=== PATIENT | female | born 1945 | race African-American/Black ===

== ENCOUNTER 2019-01-07 15:57 | Inpatient (IN) ==
[2019-01-07] MEDS ORDERED: TYLENOL PO PRN (16:52)
[2019-01-07 17:27] LABS: HEMATOCRIT 33.5 % (37.0-47.0); HEMOGLOBIN 10.8 g/dL (12.0-16.0); MCH 27.8 PG (27-31); MCHC 32.2 g/dL (33-37); MCV 86.1 FL (81-99); MPV 10.2 FL (7.4-10.4); RBC 3.89 XMIL (4.2-5.4); RDW 13.8 % (11.5-14.5); WBC 6.43 X1000 (4.8-10.8)
[2019-01-07 17:33] LABS: INR 1.05; PROTIME 13.8 Seconds (11.0-16.0)
[2019-01-07 17:34] LABS: PTT 32.9 Seconds (22.3-41.8)
--- NOTE | 2019-01-07 18:29 | EKG Report ---
Test Performed on : 01/07/2019 5:24:14 PM Test Reason : INFECTED PORT Blood Pressure : / mmHG Vent. Rate : 063 BPM Atrial Rate : 063 BPM P-R Int : 152 ms QRS Dur : 068 ms QT Int : 424 ms P-R-T Axes : 020 026 030 degrees QTc Int : 433 ms Normal sinus rhythm. Normal ECG When compared with ECG of 01-MAR-2018 15:03, No significant change was found Confirmed by Tal Caballero MD ([id number]) on 01/08/2019 6:25:18 AM
--- NOTE | 2019-01-07 18:31 | Diag Imaging Result Doc PS360 ---
EXAM: CHEST-2 VIEWS 01/07/2019 HISTORY: INFECTED PORT TECHNIQUE: PA and lateral chest COMMENT: There is a vertically oriented linear opacity across the lateral right lung which may be artifactual. The heart size and pulmonary vascularity are within normal limits. There may be some platelike atelectasis over the right base which was not present on 04/10/2018. Otherwise there is no evidence of acute abnormality. IMPRESSION: Apparent atelectasis on the right. Electronically signed by Bobby Garcia 01/07/2019 6:29 PM
[2019-01-07] MEDS ORDERED: NAVANE PO SCH (21:00)
[2019-01-07] MEDS ORDERED: NS 500 ML ONE (22:06)
[2019-01-07] MEDS: ROCEPHIN 1 GM in NS 50 ML IV SCH (22:18)
[2019-01-07] MEDS: ELIQUIS PO SCH (22:19)
[2019-01-07] MEDS: MUCINEX DM PO SCH (22:19)
[2019-01-07] MEDS: CARDIZEM CD PO SCH (22:19)
[2019-01-07] MEDS: SINGULAIR PO SCH (22:19)
[2019-01-07] MEDS: BUSPAR PO SCH (22:19)
[2019-01-07] MEDS: DUONEB (A & A) INH SCH (23:03)
[2019-01-07 23:05] LABS: URINE SOURCE CLEAN CATCH
[2019-01-07 23:12] LABS: BILIRUBIN URINE NEGATIVE (NEGATIVE); BLOOD URINE NEGATIVE (NEGATIVE); COLOR YELLOW; GLUCOSE URINE NEGATIVE (NEGATIVE); KETONE URINE NEGATIVE (NEGATIVE); LEUKOCYTES URINE MODERATE (NEGATIVE); NITRITE URINE NEGATIVE (NEGATIVE); PROTEIN URINE TRACE mg/dL (NEGATIVE); SP GRAVITY URINE 1.023; TURBIDITY URINE CLEAR (CLEAR); UR EPITHELIAL CELLS <10 /HPF (<10); URINE BACTERIA NEGATIVE /HPF; URINE RBC <10 /HPF (<10); URINE WBC <10 /HPF (<10); UROBILINOGEN URINE NORMAL (NORMAL)
[2019-01-08] MEDS: DUONEB (A & A) INH SCH ×4 (04:16→21:05)
[2019-01-08] MEDS: PRILOSEC PO SCH (06:16)
[2019-01-08] MEDS: ELIQUIS PO SCH ×2 (08:40→22:08)
[2019-01-08] MEDS: CARDIZEM CD PO SCH ×2 (08:40→22:08)
[2019-01-08] MEDS: DIOVAN PO SCH (08:40)
[2019-01-08] MEDS: MUCINEX DM PO SCH ×2 (08:40→22:08)
[2019-01-08] MEDS: MIRALAX PO SCH (08:40)
[2019-01-08] MEDS: BUSPAR PO SCH ×2 (08:40→22:08)
[2019-01-08] MEDS: HYDROCHLOROTHIAZIDE PO SCH (08:40)
[2019-01-08] MEDS: ROCEPHIN 1 GM in NS 50 ML IV SCH ×2 (08:40→22:07)
--- NOTE | 2019-01-08 08:46 | PROGRESS NOTE ---
DATE: 01/08/2019 SUBJECTIVE: The patient says she is hurting in her neck and wanted something stronger than Tylenol for pain. I will give her a little hydrocodone for this. OBJECTIVE: Vital Signs: Stable with temperature 98.4 degrees Fahrenheit, respirations 20, pulse 68 and regular, and blood pressure 108/58. HEENT: She is normocephalic. EOMS intact. PERRLA. Throat clear. Neck: Soft-tissue swelling on the right side consistent with cellulitis and blood clot. Lungs: Clear to auscultation and percussion without rhonchi, rales, or wheezes. Heart: Regular rate and rhythm without murmurs, gallops, or friction rubs. Abdomen: Soft. Active bowel sounds. No organomegaly or tenderness. Neurological: Intact grossly. LABORATORY: White count 6430, hemoglobin 10.8, and hematocrit 33.5. Coagulation studies were normal. Urinalysis normal. ASSESSMENT: 1. 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 2. Cellulitis. 3. Secondary diagnoses of chronic cough and paranoid schizophrenia. PLAN: We will continue support with IV antibiotics. I have consulted Hematology and Infectious Disease, and started her on Eliquis. We will get an ultrasound of this area in her neck. She already had a CT scan, but ultrasound may give us more details of the soft tissue. cc: Seth Snowden Jr, MD
--- NOTE | 2019-01-08 09:56 | INFECTIOUS DISEASE CONSULT REP ---
DATE: 01/08/2019 CONCLUSION: I agree with Dr. Snowden that the patient has a thrombophlebitis in the right neck due to her having a Port-A-Cath present in the right chest. I am concerned that the patient may be having pulmonary emboli from the neck phlebitis. RECOMMENDATIONS: I agree with obtaining a venous ultrasound of the neck. I have ordered a pulmonary angiogram to look for pulmonary emboli. I have also ordered daptomycin in case the patient has septic phlebitis with possible septic pulmonary emboli. Dr. Snowden has started Rocephin with which I agree also. I have consulted Dr. Castellano, who put the Port-A-Cath in, to see the patient in view of the patient appearing to have a phlebitis which may be septic in nature in the right neck from the Port-A-Cath. I am going to discontinue the Crestor the patient takes while she is in the hospital and daptomycin because both the daptomycin and Crestor could increase the likelihood of muscle toxicity. DISCUSSION: The patient tells me that she has been having severe pain in her right neck for the past 4 to 5 days. In the past week, she has been short of breath and coughing, but not bringing up any sputum. The patient's chest x-ray shows possible atelectatic changes on the right side. The creatinine is 0.8. GFR is greater than 60, alkaline phosphatase is 128. Urine and blood cultures are pending. Urinalysis showed white cells, but no bacteria. CBC shows a white blood cell count of 6430, hemoglobin 10.8 and platelet count of 208,000. PAST MEDICAL HISTORY/REVIEW OF SYSTEMS: Eyes and ears: Patient denies having trouble seeing or hearing. Neck: See present illness. Respiratory: See present illness. Cardiac: No chest pain or palpitations. GI: No nausea, vomiting, or diarrhea. : No dysuria or flank pain. Bones joints muscles: No joint swelling or muscle aching. Neurologic: No seizures. No loss of motor or sensory function. 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 She has had a hysterectomy. PREVIOUS HOSPITALIZATIONS AND OPERATIONS: She has had labor and delivery x3. She has had a hysterectomy. She has had a Port-A-Cath that was placed by Dr. Castellano, and also she has had a lumpectomy of the right breast for her breast cancer which Dr. Castellano operated on. MEDICAL DISEASES: Positive for breast cancer, hypertension, gastroesophageal reflux disease and hyperlipidemia. INFECTIOUS DISEASE HISTORY: Negative for pneumonia and UTI. FAMILY HISTORY: Positive for cancer. Negative for diabetes mellitus and hypertension. SOCIAL HISTORY: The patient is a . [place] 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 ALLERGIES: The patient's chart lists no known drug allergies. HOME MEDICATIONS: Include the following: Benztropine, buspirone, Celecoxib, diltiazem, Docusate, hydrocodone, omeprazole, Crestor, thiothixene, and valsartan/hydrochlorothiazide. PHYSICAL EXAMINATION: Vital Signs: Temperature is 98.4 degrees, pulse 68, respirations 20, blood pressure is 108/58. The patient is 5 feet 1 inch tall and weighs 197 pounds. General: This is an obese, elderly female. She is in no acute distress, except she does have paroxysms of cough. Head/eyes/ears/nose/throat: She can hear my spoken words and see near objects. I did not see any white patches on her tongue. I did not see any erythema in her throat. Neck: The patient has tenderness in the right neck. Thorax: Patient has a Port-A-Cath present on the right side. Lungs: Clear to auscultation. Cardiovascular: Heart rate is regular. Abdomen: Soft and nontender. Neurologic: The patient is alert. She can move her extremities. There is no tremor. Her sensation is intact to touch. Her memory as regarding her medical history is slightly diminished. Integument: No rash noted. Thank you for the consult. cc: MD Seth Fuller Jr, MD
--- NOTE | 2019-01-08 10:06 | HEMO/ONC CONSULTATION ---
DATE: 01/08/2019 REASON FOR CONSULTATION: Port-A-Cath related clot HISTORY OF PRESENT ILLNESS: The patient came to her primary doctor's office complaining of pain in her neck and at her port when she coughs. She stated she had some fever as well. The patient stated overall she did not feel good. Dr. Snowden performed a neck CT which revealed thrombosis of internal jugular vein on the right side and inflammation. Patient was further admitted for evaluation. PAST MEDICAL HISTORY: Hypercholesterolemia and paranoid schizophrenia. PAST SURGICAL HISTORY: Port placement, lumpectomy, and lymph node dissection. ALLERGIES: No known drug allergies. HOME MEDICATIONS: Benztropine mesylate, buspirone, Caltrate, celecoxib, Cartia XT, [place] 10, MiraLAX, potassium chloride 10 mEq, rosuvastatin, thiothixene and valsartan /hydrochlorothiazide. REVIEW OF SYSTEMS: Negative other than mentioned in HPI. VITAL SIGNS: Temperature 98.4 degrees, pulse rate 68, respiratory rate 20, blood pressure 108/58, O2 saturation 96% on room air. She has 0/10 pain. The patient only has pain with cough. PHYSICAL EXAMINATION: General: This is an elderly-appearing female in no acute distress. Patient is obese with a BMI of 37.2. Skin: Warm, dry, intact without rashes or lesions. Appropriate color for ethnicity. HEENT: Sclera is anicteric. Pupils are PERRLA. Oral mucosa is pink and moist. Cardiovascular: Normal S1, S2. Heart rate and rhythm regular. Respiratory: No signs of respiratory distress. Lung sounds are clear. Dry cough noted. Abdomen: Soft, nontender without distention. Neurological: Patient is awake, alert, and oriented. No gait abnormalities appreciated. Lymphatic Survey: No lymphadenopathy noted to neck or axilla. ASSESSMENT: 1. 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 2. T2, N3 right breast carcinoma status post chemotherapy. PLAN: The patient was last seen in the office at the beginning of November with restaging scan. Her latest restaging PET scan shows that she is without any evidence of disease or distant metastasis. She is status post adjuvant radiation and chemotherapy. She continues to take Femara daily. Her anemia is most likely chemotherapy-induced anemia. Her last iron profile in the office was adequate. The patient is due to have her port flushed today. She has been getting it flushed every 8 weeks. Continue medical treatment per Dr. Snowden. Dr. Irwin will review. Dictated by ELIZA Avendaño for Omar Irwin MD Patient seen and examined. Ultrasound preliminary results show internal jugular DVT. She is on Eliquis. She compained of subjective fevers. No fevers thus far in the hospital while on antibiotics. Continue Eliquis and antibiotics and monitor closely. Await cultures. Omar Irwin MD. cc: MD Seth Carson Jr, MD MTDD
[2019-01-08 10:24] LABS: AGAP 9; ALBUMIN 3.2 g/dL (3.5-5.0); ALKALINE PHOSPHATASE 107 U/L (32-104); BUN 14 mg/dL (8-22); CALCIUM 9.7 mg/dL (8.8-10.2); CHLORIDE 105 mmol/L (98-107); COSMO 280; CREATININE 0.6 mg/dL (0.5-0.9); ESTIMATED GFR > 60; GLUCOSE 106 mg/dL (70-104); GOT 16 U/L (10-30); GPT 14 U/L (10-36); POTASSIUM 3.6 mmol/L (3.5-5.1); SODIUM 140 mmol/L (136-145); TCO2 26 mmol/L (25-35); TOTAL BILIRUBIN 0.25 mg/dL (0.20-1.00); TOTAL PROTEIN 6.5 g/dL (6.3-8.3)
--- NOTE | 2019-01-08 11:16 | Diag Imaging Result Doc PS360 ---
EXAM: CT ANGIOGRM PULMONARY ARTERIES 01/08/2019 HISTORY: pulmonary emboli TECHNIQUE: This exam was performed using automated exposure control, adjustment of mA or kV according to patient size, and/or use of iterative reconstruction technique. COMMENT: 3-D MIPS were performed. The current study is compared with the previous noncontrast examination of 12/11/2018. There are no filling defects in the pulmonary arteries. The aorta is not distended and there is no evidence of dissection. The descending aorta is somewhat tortuous. There is a right pleural effusion. This was not present at the time the previous study. There are calcified subcarinal and hilar nodes there is subcutaneous edema and skin thickening over the right chest which was also described previously. There appears to be soft tissue swelling and edema in the base of the neck on the right. There is no contrast opacification of the right internal jugular vein above the level of the medial clavicle head. This may simply be due to the lack of return flow from the head, however the possibility of thrombosis of the internal jugular cannot be excluded. There are spondylotic changes in the thoracic spine. There is a sclerotic lesion on the left side of the body of T10. This was also present at the time the previous study. There is some fibrotic appearing changes adjacent to the anterior pleura in the right upper lobe. This may be secondary to postirradiation fibrosis. The same is true of the right middle lobe. There is minimal atelectasis in the costophrenic sulci of both lower lobes. There are platelike opacities in the lingula which may be due to atelectasis. There is at least one calcified granuloma in the left upper lobe. IMPRESSION: No evidence of pulmonary emboli. Minimal atelectatic changes otherwise no evidence of acute pulmonary parenchymal disease. Soft tissue swelling in the right chest and inferior neck as described. Electronically signed by Bobby Garcia 01/08/2019 11:14 AM
[2019-01-08] MEDS: CUBICIN 500 MG in NS 100 ML IV SCH (12:07)
--- NOTE | 2019-01-08 18:37 | GENERAL SURGERY CONSULTATION ---
DATE: 01/08/2019 REASON FOR CONSULTATION: Possible thrombophlebitis and infection of a Port-A-Cath. HISTORY OF PRESENT ILLNESS: This is a 73-year-old female who has had swelling and pain of her right neck for the last week. It hurts when she coughs. She has reported some subjective fever. She has a history of right breast cancer, T3 N2, status post partial mastectomy, adjuvant radiation and chemotherapy. She had imaging of her neck yesterday, specifically a CT scan which showed probable thrombosis of the internal jugular vein and surrounding inflammation which may indicate thrombophlebitis. She has been admitted for further evaluation. Subsequently, she has had a CT scan or pulmonary angiogram of her chest without any evidence of pulmonary emboli. A right upper extremity venous duplex ultrasound was performed which shows occlusive thrombosis of the right internal jugular vein. PAST MEDICAL HISTORY: Hypercholesterolemia, paranoid schizophrenia, and as above in HPI. PAST SURGICAL HISTORY: Right partial mastectomy, axillary lymph node dissection and port placement. ALLERGIES: No known drug allergies. HOME MEDICATIONS: Benztropine, buspirone, Caltrate, celecoxib, cardia, [place], MiraLAX, potassium chloride, rosuvastatin, thiothixene, valsartan/hydrochlorothiazide. REVIEW OF SYSTEMS: Ten systems reviewed and negative except as noted above. PHYSICAL EXAMINATION: Vital Signs: Temperature 98.4 degrees, pulse 60, respirations 20, blood pressure 141/80. O2 saturation 98%. General: Well-developed elderly female in no distress who looks her stated age. HEENT: Normocephalic, atraumatic. Extraocular muscles intact. Pupils equal, round, reactive to light. Sclerae anicteric. Moist mucous membranes. Neck: She has a firm tender area of swelling over the right internal jugular and supraclavicular area. It does not look particularly red and does not feel warm. There is no fluctuance. There is no drainage. There is no crepitus. Cardiovascular: Regular rate and rhythm. Respiratory: Bilateral equal breath sounds. No work of breathing. Gastrointestinal: Abdomen soft, nontender, nondistended. No organomegaly or mass. Extremities: No clubbing, cyanosis, or edema. LABORATORY: White blood cell count 6.4, hemoglobin 10.8, hematocrit 33.5. Complete metabolic profile reviewed and unremarkable. IMAGING: As described above in HPI. ASSESSMENT AND PLAN: 73-year-old female with a history of breast cancer, now with occlusive thrombosis of the right internal jugular vein associated with her indwelling Port-A-Cath. She definitely has some surrounding cellulitis. There is a question of bacteremia or thrombophlebitis. For now, we will start her on anticoagulation and assess whether the port flushes. If it flushes and there is no bacteremia, then Dr. Irwin and I plan to leave the port in and treat her with anticoagulation. If she does have bacteremia or the port is not functional, then we will plan to remove it this admission. Thank you for the consultation. cc: MD Seth Toledo Jr, MD
[2019-01-08] MEDS: SINGULAIR PO SCH (22:08)
[2019-01-08] MEDS: NORCO-7.5 PO PRN (22:20)
[2019-01-09] MEDS: DUONEB (A & A) INH SCH ×4 (03:35→22:02)
[2019-01-09 06:03] LABS: BASO# 0.03 X1000 (0.0-0.2); BASO% 0.5 % (0.0-0.8); EOS# 0.14 X1000 (0.0-0.7); EOS% 2.4 % (0.0-10.0); HEMATOCRIT 30.8 % (37.0-47.0); HEMOGLOBIN 9.9 g/dL (12.0-16.0); LYMPH# 1.01 X1000 (1.2-3.4); LYMPH% 17.4 % (20.5-51.1); MCH 26.8 PG (27-31); MCHC 32.1 g/dL (33-37); MCV 83.5 FL (81-99); MONO# 0.71 X1000 (0.11-0.59); MONO% 12.3 % (1.7-9.3); MPV 10.3 FL (7.4-10.4); NEUT% 67.4 % (42.2-75.2); PLT 220 X1000 (130-400); RBC 3.69 XMIL (4.2-5.4); RDW 13.7 % (11.5-14.5); WBC 5.79 X1000 (4.8-10.8)
[2019-01-09] MEDS: PRILOSEC PO SCH (06:08)
[2019-01-09 06:24] LABS: AGAP 9; BUN 16 mg/dL (8-22); CALCIUM 9.1 mg/dL (8.8-10.2); CHLORIDE 105 mmol/L (98-107); COSMO 283; CREATININE 0.7 mg/dL (0.5-0.9); ESTIMATED GFR > 60; GLUCOSE 106 mg/dL (70-104); POTASSIUM 2.8 mmol/L (3.5-5.1); SODIUM 141 mmol/L (136-145); TCO2 27 mmol/L (25-35)
[2019-01-09] MEDS ORDERED: CARDIZEM CD PO SCH (09:00)
[2019-01-09] MEDS ORDERED: HYDROCHLOROTHIAZIDE PO SCH (09:00)
[2019-01-09] MEDS ORDERED: DIOVAN PO SCH (09:00)
[2019-01-09] MEDS ORDERED: MICRO-K PO SCH (09:00)
--- NOTE | 2019-01-09 09:10 | PROGRESS NOTE ---
DATE: 01/09/2019 SUBJECTIVE: The patient has been more nervous. She did not get her antipsychotic drugs. There has been some question about what she is really taking. The list she gave me from the office and the list that she gave the nurses here were different. We are going to call her psychiatrist and find out exactly what she is taking. Today she told me that he had made some changes, but she does not know what they are. Apparently could not get the [place], and she has been a little bit more paranoid. She has another antipsychotic listed. We will try to clarify this and get her back on her medications. OBJECTIVE: Vital Signs: Temperature 98.8 degrees Fahrenheit, but she did have a low-grade temperature yesterday, pulse 74 and regular, respirations 18, blood pressure 130/79, oxygen saturation on room air is 95%. HEENT: She is normocephalic. Intact PERRLA. Throat clear. Neck: I think there is a little less swelling in the right neck area. She says it still hurts a lot, but she does not seem nearly as tender as she did yesterday and the day before. I do not think it is as large as it was either, so I think the cellulitis has improved. She has clots there as well. Lungs: Clear to auscultation and percussion without rhonchi, rales, or wheezes. CT angiogram of the chest to rule out pulmonary emboli was negative. Heart: Regular rate and rhythm without murmurs, gallops or friction rubs. Abdomen: Soft. Active bowel sounds. No organomegaly or tenderness. Neurological exam: Cranial nerves 2-12 intact grossly. Sensory and motor intact. Psychiatric: The patient appears anxious and a little bit more paranoid. We will try to get her back on her antipsychotic medications. ASSESSMENT: 1. Cellulitis, right neck. 2. Thrombus of internal jugular vein on the right. 3. Paranoid schizophrenia. 4. Hypertension. PLAN: We will continue IV antibiotics. We will see if we can save the port. Appreciate help from all the specialists; Dr. Mulligan of Infectious Disease, Dr. Irwin of Hematology/Oncology and Dr. Castellano of Surgery. Continue care. cc: Seth Snowden Jr, MD
[2019-01-09] MEDS: ROCEPHIN 1 GM in NS 50 ML IV SCH ×2 (09:22→22:54)
[2019-01-09] MEDS: DIOVAN PO SCH (09:22)
[2019-01-09] MEDS: MUCINEX DM PO SCH ×2 (09:23→22:56)
[2019-01-09] MEDS: BUSPAR PO SCH ×2 (09:23→22:55)
[2019-01-09] MEDS: ELIQUIS PO SCH ×2 (09:23→22:56)
[2019-01-09] MEDS: CARDIZEM CD PO SCH ×2 (09:23→22:56)
[2019-01-09] MEDS: HYDROCHLOROTHIAZIDE PO SCH (09:23)
[2019-01-09] MEDS: MIRALAX PO SCH (09:23)
[2019-01-09] MEDS: FEMARA PO SCH (09:32)
[2019-01-09] MEDS: COGENTIN PO SCH ×2 (09:32→22:56)
[2019-01-09] MEDS: TRILAFON PO SCH ×2 (09:34→23:21)
[2019-01-09] MEDS: KLOR-CON PO SCH (09:41)
--- NOTE | 2019-01-09 09:59 | INFECTIOUS DISEASE PROGRESS NO ---
DATE: 01/09/2019 PRESENT ILLNESS: The patient has thrombophlebitis of the right neck with an associated cellulitis due to her Port-A-Cath which is in the right chest and extends into the jugular vein. MEDICATIONS: The patient is receiving a combination of daptomycin and Rocephin. OBJECTIVE: Vital Signs: Temperature is 98.8 degrees, pulse 74, respirations 18, blood pressure 130/79. General: This is a healthy-appearing and obese elderly female. She is in no acute distress. Head, Eyes, Ears, Nose, and Throat: She can hear my spoken words and see near objects. She does not have any white patches on her tongue. Neck: The patient has slight tenderness on the right side where her catheter site is, and it is slightly indurated there. Lungs: Clear to auscultation. Cardiovascular: Regular heart rate. Thorax: The patient's Port-A-Cath site on the right side is not swollen or tender. Abdomen: Soft and nontender. Neurologic: Patient is alert she can move her extremities. She is able to ambulate. There is no tremor. Integument: No rash noted. DIAGNOSTIC STUDIES: CT scan of the neck shows thrombosis and inflammation of the right internal jugular vein with tissue swelling in the neck suggestive of cellulitis. CT angiogram of the chest shows no pulmonary emboli. There is soft tissue swelling in the right chest suggestive of infection of the chest ASSESSMENT AND PLAN: 1. The patient has cellulitis in the neck and in the chest wall. 2. The patient has thrombophlebitis of the right internal jugular vein. My plan is to continue daptomycin and Rocephin pending culture results. COMORBIDITIES: 1. The patient is elderly. 2. She has a Port-A-Cath that has been placed on the right side. 3. The patient has breast cancer. 4. Gastroesophageal reflux disease. cc: MD Seth Fuller Jr, MD
[2019-01-09] MEDS ORDERED: ELIQUIS PO ONE (12:32)
[2019-01-09] MEDS: CUBICIN 500 MG in NS 100 ML IV SCH (12:43)
[2019-01-09] MEDS: NORCO-7.5 PO PRN (13:01)
--- NOTE | 2019-01-09 13:39 | HEMO/ONC PROGRESS NOTE ---
DATE: 01/09/2019 HPI/SUBJECTIVE: Ms. Silva is awake in her bed this morning. She is holding the covers up to her neck. She is not allowing nursing staff to access her port this morning. She states she will not do it till she has talked with Dr. Irwin. I explained to her that we needed to do this test and that Dr. Irwin had discussed it with Dr. Castellano. The patient still had concerns and wanted to discuss it with Dr. Irwin. The patient did take her medication per the nurse request. The patient states that her neck still hurt. She states she had a good night's sleep. She denies any other complaints today. OBJECTIVE: Vital Signs: Temperature 98.5 degrees, pulse rate 66, respiratory 20, blood pressure 118/94, O2 saturation 96% on room air. She has 5/10 right-sided neck pain. PHYSICAL EXAMINATION: General: This is an elderly appearing female in no acute distress. Skin: Warm, dry, and intact without rashes or lesions. Neck: Sightly swollen to the right side, tender to touch. Lungs: Clear to auscultation. No signs of respiratory distress. Cardiovascular: Heart rate and rhythm regular. Abdomen: Soft, nontender, without distention. Neurological: Awake and alert and oriented. Psychiatric: Seems to be a little more paranoid today. ASSESSMENT: 1. Cellulitis of the right neck. 2. 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 3. Paranoid schizophrenia. 4. T2 N3 right breast cancer status post chemotherapy. PLAN: The patient's ultrasound preliminary results show internal jugular deep venous thrombosis. The patient needs to be on Eliquis 10 mg twice a day for 7 days and then reduce the dose to 5 mg. She needs to continue to take Femara daily. Dr. Irwin will see the patient today at to assure her that he would like the nurse to attempt to flush her port. We will continue to follow. Dictated by ELIZA Avendaño for Omar Irwin MD As above. Continue antibiotics and eliquis loading dose followed by maintenance dose. Flush port today. Continue further management. Omar Irwin MD. cc: MD Seth Carson Jr, MD MTDD
--- NOTE | 2019-01-09 14:43 | GENERAL SURGERY PROGRESS NOTE ---
DATE: 01/09/2019 SUBJECTIVE: The patient is doing okay this morning. No new complaints. OBJECTIVE: She is afebrile. Vital signs are stable. General: She is awake, alert, oriented x3. No acute distress. Neck: The right neck remains indurated, tender, but somewhat less so than yesterday. LABORATORY: White blood cell count 5.8, hemoglobin 9.9, hematocrit 30.8, platelet count 220,000. Electrolytes reviewed and notable for potassium 2.8. Microbiology: Her blood cultures from yesterday are pending. ASSESSMENT AND PLAN: A 73-year-old female with advanced breast cancer. She has cellulitis and thrombophlebitis with deep venous thrombosis of the right internal jugular vein associated with the [id number]. If she is if she is bacteremic we will plan removal of the port- a- catheter. Otherwise, we will treat with antibiotics and anticoagulation alone. cc: MD Seth Toledo Jr, MD
--- NOTE | 2019-01-09 16:08 | Extremity Venous Study ---
PROCEDURE NAME: Venous U/S Right Arm - 01/07/2019 REFERRING PHYSICIAN: Seth Snowden Jr, MD. INDICATIONS: The patient is noted to have a DVT in the right internal jugular vein on recent CT. FINDINGS: The right internal jugular vein is identified. There is echogenicity within it. It is noncompressible. The right subclavian and axillary veins are compressible with flow. INTERPRETATION: Deep venous thrombosis involving the right internal jugular vein. This study verifies what was recently seen on CT scan. cc: MD Seth Quintana Jr, MD
[2019-01-09] MEDS: SINGULAIR PO SCH (22:55)
[2019-01-09] MEDS: CRESTOR PO SCH (22:56)
[2019-01-10] MEDS: DUONEB (A & A) INH SCH ×4 (03:28→21:08)
[2019-01-10 06:11] LABS: BASO# 0.03 X1000 (0.0-0.2); BASO% 0.5 % (0.0-0.8); EOS# 0.12 X1000 (0.0-0.7); HEMOGLOBIN 10.2 g/dL (12.0-16.0); LYMPH# 1.03 X1000 (1.2-3.4); LYMPH% 17.3 % (20.5-51.1); MCH 26.8 PG (27-31); MCHC 31.9 g/dL (33-37); MCV 84.2 FL (81-99); MONO% 11.7 % (1.7-9.3); MPV 9.9 FL (7.4-10.4); NEUT# 4.08 X1000 (1.4-6.5); NEUT% 68.5 % (42.2-75.2); PLT 240 X1000 (130-400); RDW 13.7 % (11.5-14.5); WBC 5.96 X1000 (4.8-10.8)
[2019-01-10] MEDS: PRILOSEC PO SCH (06:32)
[2019-01-10 06:34] LABS: AGAP 11; BUN 14 mg/dL (8-22); CALCIUM 9.6 mg/dL (8.8-10.2); CHLORIDE 104 mmol/L (98-107); COSMO 285; CREATININE 0.7 mg/dL (0.5-0.9); ESTIMATED GFR > 60; GLUCOSE 128 mg/dL (70-104); POTASSIUM 2.9 mmol/L (3.5-5.1); SODIUM 142 mmol/L (136-145); TCO2 27 mmol/L (25-35)
--- NOTE | 2019-01-10 09:05 | PROGRESS NOTE ---
DATE: 01/10/2019 SUBJECTIVE: The patient says she feels the same. She says she may be hurting a little bit more in her neck. OBJECTIVE: Vital Signs: Blood pressure 116/67, respirations 16, pulse 63, and temperature 99.8 degrees. HEENT: She is normocephalic. EOMS intact. PERRLA. Throat clear. Neck: Shows enlargement on the right side consistent with her clots and cellulitis. Lungs: Clear to auscultation and percussion without rhonchi, rales, or wheezes. Heart: Regular rate rhythm without murmurs, gallops, or friction rubs. Abdomen: Soft. Active bowel sounds. No organomegaly or tenderness. Neurological: Intact grossly. ASSESSMENT: 1. Internal jugular vein thrombosis. 2. Cellulitis right side of neck. 3. Breast cancer. 4. Has a port. 5. Schizophrenia, paranoid type. PLAN: We will continue with IV antibiotics and anticoagulation. I have discussed this with Dr. Irwin. Also, thanks to all of the consultants including Infectious Disease, Dr. Mulligan, and Dr. Irwin for Hem-Onc, and Dr. Castellano for Surgery. cc: Seth Snowden Jr, MD
--- NOTE | 2019-01-10 09:26 | INFECTIOUS DISEASE PROGRESS NO ---
DATE: 01/10/2019 PRESENT ILLNESS: The patient has thrombophlebitis of the right neck with an associated cellulitis. She also has on her CT angiogram of the chest soft tissue swelling in the right chest suggestive of infections such as cellulitis. MEDICATIONS: The patient is on a combination of daptomycin and Rocephin. PHYSICAL EXAMINATION: Vital Signs: Temperature is 99.8 degrees, pulse 63, respirations 16, blood pressure 116/67. General: This is an obese, elderly female. She is in no acute distress. Head, eyes, ears, nose, throat: She can hear my spoken words and see near objects. She does not have any white patches on her tongue. Neck: The patient does complain of pain in her right neck. I was unable to feel any induration or tenderness suggestive of cellulitis. Thorax: The patient's Port-A-Cath site is not swollen and there is not tenderness in the Port-A-Cath site and also in the upper part of the right chest. Lungs: Clear to auscultation. Cardiovascular: Heart rate is regular. Abdomen: Soft and nontender. Neurologic: The patient is alert. She can ambulate without difficulty. There is no tremor. Integument: No rash noted. LAB AND X-RAY: CBC shows a white count of 5960, hemoglobin 10.2, and platelet count 240,000. Creatinine is 0.7, GFR is greater than 60. Blood and urine cultures are sterile. There is no new radiographic study for today. ASSESSMENT AND PLAN: The patient has cellulitis in the neck secondary to thrombophlebitis of the right internal jugular vein. Also, in the chest wall, on CT scan, there is evidence of cellulitis also. My plan now is to continue daptomycin and Rocephin pending final culture results. COMORBIDITIES: The patient is elderly and she has a Port-A-Cath on the right side. She has breast cancer also as well as gastroesophageal reflux disease. cc: MD Seth Fuller Jr, MD
[2019-01-10] MEDS: ROCEPHIN 1 GM in NS 50 ML IV SCH ×2 (10:08→20:36)
[2019-01-10] MEDS: DIOVAN PO SCH (10:09)
[2019-01-10] MEDS: FEMARA PO SCH (10:09)
[2019-01-10] MEDS: MIRALAX PO SCH (10:09)
[2019-01-10] MEDS: MUCINEX DM PO SCH ×2 (10:09→20:37)
[2019-01-10] MEDS: COGENTIN PO SCH ×2 (10:09→20:33)
[2019-01-10] MEDS: HYDROCHLOROTHIAZIDE PO SCH (10:10)
[2019-01-10] MEDS: TRILAFON PO SCH ×2 (10:10→20:35)
[2019-01-10] MEDS: BUSPAR PO SCH ×2 (10:10→20:36)
[2019-01-10] MEDS: CARDIZEM CD PO SCH ×2 (10:10→20:36)
[2019-01-10] MEDS: ELIQUIS PO SCH ×2 (10:11→20:34)
[2019-01-10] MEDS: KLOR-CON PO SCH (10:11)
[2019-01-10] MEDS: CUBICIN 500 MG in NS 100 ML IV SCH (12:31)
--- NOTE | 2019-01-10 13:20 | HEMO/ONC PROGRESS NOTE ---
DATE: 01/10/2019 SUBJECTIVE: Ms. Silva is awake and alert, sitting up in bed this morning. She was happy to see Dr. Irwin and me this morning. She states that the pain in her neck does seem to be a little more tender today than when she came in. She states it hurts to turn her neck in any direction. She states she did have a good night's sleep, and she denies any other complaints today. OBJECTIVE: Vital Signs: Temperature 98.6 degrees, pulse rate 63, respiratory rate 20, blood pressure 112/59, O2 saturation 95% on room air. Pain Level: She is in 0/10 pain unless she moves her neck. General: This is an elderly appearing female in no acute distress. Skin: Warm, dry, and intact without rashes or lesions. Neck: Swollen to the right side of her neck, tender to touch. No redness or warmth appreciated. Lungs: Clear to auscultation. No signs of respiratory distress. Cardiovascular: Heart rate and rhythm regular. Normal S1, S2. Abdomen: Soft, nontender, without distension. Neurological: Awake, alert, and oriented. Psychiatric: Pleasant and appropriate mood today. The patient does have paranoid schizophrenia. ASSESSMENT: 1. Cellulitis of the right neck. 2. 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 3. Paranoid schizophrenia. 4. T2N3 right breast cancer status post chemotherapy. PLAN: The plan is to continue antibiotics and the loading dose of Eliquis for 7 days. Her port was able to be flushed adequately yesterday and had good blood return. Continue antibiotics. Discussed with Dr. Castellano and Dr. Snowden. We will continue to follow. Please call us if needed over the weekend. Dictated by ELIZA Avendaño for Omar Irwin MD cc: MD Seth Carson Jr, MD MTDD
--- NOTE | 2019-01-10 20:10 | GENERAL SURGERY PROGRESS NOTE ---
DATE: 01/10/2019 SUBJECTIVE: The patient feels about the same today. No new complaints. OBJECTIVE: Vital Signs: She is afebrile. Vital signs are stable. General: She is awake, alert, oriented x3. No acute distress. Neck: Her right neck remains swollen and tender, but not appreciably worse than yesterday. LABORATORY: White blood cell count 5.9. Electrolytes reviewed and notable for potassium of 2.9. Blood cultures are now negative after 48 hours. ASSESSMENT AND PLAN: A 73-year-old female with right neck thrombophlebitis and deep venous thrombosis of the internal jugular vein, associated with a history of breast cancer. It does not appear that she has bacteremia. Therefore, we will try to treat through this with antibiotics and anticoagulation, but keep the port in for now. cc: MD Seth Toledo Jr, MD
[2019-01-10] MEDS: SINGULAIR PO SCH (20:36)
[2019-01-10] MEDS: CRESTOR PO SCH (20:36)
[2019-01-10] MEDS: NORCO-7.5 PO PRN (20:46)
[2019-01-11] MEDS: DUONEB (A & A) INH SCH ×4 (03:06→21:35)
[2019-01-11] MEDS: PRILOSEC PO SCH (05:59)
[2019-01-11 06:02] LABS: BASO# 0.04 X1000 (0.0-0.2); BASO% 0.8 % (0.0-0.8); EOS# 0.17 X1000 (0.0-0.7); EOS% 3.5 % (0.0-10.0); HEMATOCRIT 31.5 % (37.0-47.0); HEMOGLOBIN 10.2 g/dL (12.0-16.0); LYMPH# 0.85 X1000 (1.2-3.4); LYMPH% 17.6 % (20.5-51.1); MCH 27.1 PG (27-31); MCHC 32.4 g/dL (33-37); MCV 83.8 FL (81-99); MONO# 0.59 X1000 (0.11-0.59); MONO% 12.2 % (1.7-9.3); NEUT# 3.19 X1000 (1.4-6.5); NEUT% 65.9 % (42.2-75.2); PLT 257 X1000 (130-400); RBC 3.76 XMIL (4.2-5.4); RDW 13.5 % (11.5-14.5); WBC 4.84 X1000 (4.8-10.8)
[2019-01-11 06:28] LABS: AGAP 7; BUN 10 mg/dL (8-22); CHLORIDE 104 mmol/L (98-107); COSMO 279; CREATININE 0.5 mg/dL (0.5-0.9); ESTIMATED GFR > 60; GLUCOSE 106 mg/dL (70-104); POTASSIUM 3.2 mmol/L (3.5-5.1); SODIUM 140 mmol/L (136-145); TCO2 29 mmol/L (25-35)
[2019-01-11] MEDS: ROCEPHIN 1 GM in NS 50 ML IV SCH ×3 (09:45→22:26)
[2019-01-11] MEDS: COGENTIN PO SCH ×3 (09:45→22:28)
[2019-01-11] MEDS: FEMARA PO SCH (09:45)
[2019-01-11] MEDS: DIOVAN PO SCH (09:46)
[2019-01-11] MEDS: MIRALAX PO SCH (09:46)
[2019-01-11] MEDS: MUCINEX DM PO SCH ×3 (09:47→22:27)
[2019-01-11] MEDS: ELIQUIS PO SCH ×3 (09:47→22:28)
[2019-01-11] MEDS: HYDROCHLOROTHIAZIDE PO SCH (09:47)
[2019-01-11] MEDS: KLOR-CON PO SCH (09:47)
[2019-01-11] MEDS: BUSPAR PO SCH ×3 (09:47→22:27)
[2019-01-11] MEDS: TRILAFON PO SCH ×3 (09:48→22:27)
[2019-01-11] MEDS: CARDIZEM CD PO SCH ×3 (09:55→22:27)
[2019-01-11] MEDS ORDERED: KLOR-CON PO ONE (10:54)
--- NOTE | 2019-01-11 11:27 | PROGRESS NOTE ---
DATE: 01/11/2019 SUBJECTIVE: A 73-year-old female patient, admitted with pain in the right side of the neck. Found to have thrombus in the right internal jugular vein with some inflammation around. Patient had Doppler done which also revealed the blood clot. The patient is on IV antibiotics and symptomatic care. The patient is feeling better. Her pain seems to be getting better. The patient had low-grade fever. Oral intake is fair. No nausea or vomiting. Mild cough, no expectoration. She denied any typical chest pain or palpitation. Vague abdominal pain. No nausea or vomiting. No diarrhea, blood, or mucus in the stool. No dysuria or hematuria. Admission history and physical and consult note reviewed. PAST MEDICAL HISTORY: Significant for breast cancer, hyperlipidemia, paranoid schizophrenia. Patient had port placement. OBJECTIVE: Vital signs: Blood pressure 140/71, pulse 80, respiration 18, temperature 99.3 degrees. Skin: Senile turgor. Neck: Supple. No JVD. The patient does have soreness in the right side of the neck. No pharyngeal congestion. Ears and nose: Benign. Lungs: Bibasilar crepitation. Heart: S1 and S2 heard. Abdomen: Soft, nontender. Bowel sounds present. Extremities: No cyanosis, clubbing. No acute DVT. Central nervous system: Alert, awake, able to move all 4 limbs. LABORATORY DATA: Done today revealed hypokalemia, potassium 3.2. I am going to supplement potassium, check the magnesium level. BUN was 10, creatinine 0.5. CBC results noted hemoglobin 10.2, hematocrit 31.5, most likely due to anemia of chronic disease. ASSESSMENT AND PLAN: The patient's problem includes deep venous thrombosis involving the right internal jugular vein with some inflammation around the neck, breast cancer, paranoid schizophrenia, hypokalemia, anemia of chronic disease. We will supplement potassium. Check magnesium. Continue IV antibiotics. Overall plan discussed with the patient and she is in agreement. Her other problems include hyperlipidemia on Crestor, hypertension, rhinitis, on Singulair, constipation. cc: MD Seth Powers Jr, MD
[2019-01-11] MEDS: CUBICIN 500 MG in NS 100 ML IV SCH (13:43)
--- NOTE | 2019-01-11 14:59 | GENERAL SURGERY PROGRESS NOTE ---
DATE: 01/11/2019 SUBJECTIVE: No acute changes. She is eating and overall feeling better. OBJECTIVE: Vital Signs: She is afebrile. Vital signs are stable. General: She is awake, alert, oriented x4. No acute distress. Neck: The right side is sore and firm and swollen, but no change since admission. No crepitans or significant erythema. LABORATORY: CBC and metabolic profile reviewed and unremarkable. ASSESSMENT AND PLAN: A 73-year-old female with right internal jugular vein deep vein thrombosis associated with the port. There is some surrounding cellulitis, possible thrombophlebitis, but I think she is improving. We will keep her port and treat her with anticoagulation. No further surgical plans at this time. cc: MD Seth Toledo Jr, MD
[2019-01-11] MEDS: NORCO-7.5 PO PRN (19:42)
[2019-01-11] MEDS: CRESTOR PO SCH ×2 (19:46→22:28)
[2019-01-11] MEDS: SINGULAIR PO SCH ×2 (19:46→22:28)
[2019-01-12] MEDS: DUONEB (A & A) INH SCH ×4 (03:35→21:31)
[2019-01-12 05:54] LABS: BASO# 0.03 X1000 (0.0-0.2); BASO% 0.6 % (0.0-0.8); EOS# 0.14 X1000 (0.0-0.7); EOS% 2.7 % (0.0-10.0); HEMATOCRIT 32.9 % (37.0-47.0); HEMOGLOBIN 10.6 g/dL (12.0-16.0); LYMPH# 0.98 X1000 (1.2-3.4); LYMPH% 18.7 % (20.5-51.1); MCH 27.1 PG (27-31); MCHC 32.2 g/dL (33-37); MCV 84.1 FL (81-99); MONO# 0.56 X1000 (0.11-0.59); MONO% 10.7 % (1.7-9.3); MPV 9.6 FL (7.4-10.4); NEUT# 3.52 X1000 (1.4-6.5); NEUT% 67.3 % (42.2-75.2); PLT 284 X1000 (130-400); RBC 3.91 XMIL (4.2-5.4); RDW 13.3 % (11.5-14.5); WBC 5.23 X1000 (4.8-10.8)
[2019-01-12] MEDS: PRILOSEC PO SCH (06:31)
[2019-01-12 06:42] LABS: AGAP 10; ALB/GLOB RATIO 0.9; ALBUMIN 3.2 g/dL (3.5-5.0); ALKALINE PHOSPHATASE 126 U/L (32-104); BUN 14 mg/dL (8-22); CALCIUM 9.7 mg/dL (8.8-10.2); CHLORIDE 105 mmol/L (98-107); COSMO 282; CREATININE 0.5 mg/dL (0.5-0.9); ESTIMATED GFR > 60; GLUCOSE 110 mg/dL (70-104); GOT 15 U/L (10-30); GPT 15 U/L (10-36); POTASSIUM 3.9 mmol/L (3.5-5.1); SODIUM 141 mmol/L (136-145); TCO2 26 mmol/L (25-35); TOTAL BILIRUBIN 0.24 mg/dL (0.20-1.00); TOTAL PROTEIN 6.7 g/dL (6.3-8.3)
[2019-01-12] MEDS: ROCEPHIN 1 GM in NS 50 ML IV SCH ×2 (09:29→20:22)
[2019-01-12] MEDS: TRILAFON PO SCH ×2 (09:29→20:22)
[2019-01-12] MEDS: FEMARA PO SCH (09:29)
[2019-01-12] MEDS: ELIQUIS PO SCH ×2 (09:29→20:22)
[2019-01-12] MEDS: BUSPAR PO SCH ×4 (09:29→20:25)
[2019-01-12] MEDS: CARDIZEM CD PO SCH ×2 (09:29→20:22)
[2019-01-12] MEDS: MUCINEX DM PO SCH ×2 (09:29→20:21)
[2019-01-12] MEDS: KLOR-CON PO SCH (09:30)
[2019-01-12] MEDS: DIOVAN PO SCH (09:30)
[2019-01-12] MEDS: COGENTIN PO SCH ×2 (09:30→20:21)
[2019-01-12] MEDS: MIRALAX PO SCH (09:30)
[2019-01-12] MEDS: HYDROCHLOROTHIAZIDE PO SCH (09:30)
--- NOTE | 2019-01-12 09:44 | PROGRESS NOTE ---
DATE: 01/12/2019 SUBJECTIVE: Ms. Silva is doing better. The pain and redness right side of the neck improving. No high-grade fever or chills. Mild cough. No expectoration. Denied any nausea or vomiting. Oral intake seems to be getting better. PAST MEDICAL HISTORY: Noted. MEDICATIONS: Noted. OBJECTIVE: Vital Signs: Reviewed. Neck: Supple. No JVD. Lungs: Bibasilar crepitations. Heart: S1 and S2 heard. Abdomen: Soft, nontender. Bowel sounds present. No acute DVT. 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 LABORATORY DATA: Done today, WBC count 5.23, hemoglobin 10.6, hematocrit 32.9, platelet count 284,000. Electrolytes fairly benign. ASSESSMENT: 1. Hypokalemia, improved. The patient admitted with deep venous thrombosis involving the right internal jugular vein with some local inflammation. Patient is on IV antibiotics. Clinically doing better. 2. History of hypokalemia, improved. 3. Schizophrenia. No hallucination or delusion. 4. History of breast cancer. 5. Hypertension, on Diovan/hydrochlorothiazide. 6. Hyperlipidemia, on Crestor. Overall patient is doing better. We will continue current treatment. Close observation. Hopefully will plan discharging patient home tomorrow. cc: MD Seth Powers Jr, MD
[2019-01-12] MEDS: CUBICIN 500 MG in NS 100 ML IV SCH (13:07)
--- NOTE | 2019-01-12 14:01 | INFECTIOUS DISEASE PROGRESS NO ---
DATE: 01/12/2019 PRESENT ILLNESS: The patient has thrombophlebitis in the right neck with an associated cellulitis. Also as seen on CT scan of the chest, she has soft tissue swelling in the right chest also suggestive of cellulitis. MEDICATIONS: The patient is on daptomycin and Rocephin. PHYSICAL EXAMINATION: Vital Signs: Temperature is 98.3 degrees, pulse 76, respirations 20, blood pressure 120/73. General: This is an obese, elderly female. She is in no acute distress. She said that her neck is hurting less than it had been prior to today. Head/eyes/ears/nose/throat: She can hear my spoken words and see near objects. She does not have any white coating of her tongue. Neck: I can palpate the catheter in the lower part of the neck on the right side. There is not any erythema present in the neck. It is still slightly tender. Thorax: The patient's Port-A-Cath site is not swollen, and there is no drainage coming from it. Lungs: Clear to auscultation. Cardiovascular: Regular heart rate. Abdomen: Soft and nontender. Neurologic: The patient is alert. She ambulates without difficulty. She does not have a tremor. LAB AND X-RAY: CBC shows a white count of 5230, hemoglobin 10.6, platelet count is 284,000. Creatinine is 0.5, GFR is greater than 60. Blood and urine cultures are negative. There is no new radiographic study for today. ASSESSMENT AND PLAN: The patient has cellulitis in the neck secondary to thrombophlebitis. She also has cellulitis on the chest wall as seen on CT scan. For now, I plan on continuing daptomycin and Rocephin. I think by tomorrow, the patient should be able to go home. I do not think she will need any further antibiotics. I have ordered a CK because daptomycin can cause muscle toxicity, and the patient is on rosuvastatin, and that and the daptomycin may cause an increase in the CK. As mentioned above, I have ordered a CK for tomorrow, and I have discontinued the statin drug the patient is on. COMORBIDITIES: The patient is elderly, and she has a Port-A-Cath present on the right side. She also has breast cancer and gastroesophageal reflux disease. cc: MD Seth Fuller Jr, MD
[2019-01-12] MEDS: NORCO-7.5 PO PRN (20:19)
[2019-01-12] MEDS: SINGULAIR PO SCH (20:21)
[2019-01-13] MEDS: DUONEB (A & A) INH SCH ×2 (03:40→09:32)
[2019-01-13] MEDS: PRILOSEC PO SCH ×2 (05:58→06:02)
[2019-01-13] MEDS: NORCO-7.5 PO PRN (05:58)
[2019-01-13 08:11] VITALS: BP 129/81
[2019-01-13] MEDS: DIOVAN PO SCH (08:57)
[2019-01-13] MEDS: BUSPAR PO SCH (08:57)
[2019-01-13] MEDS: COGENTIN PO SCH (08:57)
[2019-01-13] MEDS: KLOR-CON PO SCH (08:57)
[2019-01-13] MEDS: ELIQUIS PO SCH (08:57)
[2019-01-13] MEDS: ROCEPHIN 1 GM in NS 50 ML IV SCH (08:58)
[2019-01-13] MEDS: TRILAFON PO SCH (08:58)
[2019-01-13] MEDS: FEMARA PO SCH (08:58)
[2019-01-13] MEDS: CARDIZEM CD PO SCH (08:58)
[2019-01-13] MEDS: MUCINEX DM PO SCH (08:58)
[2019-01-13] MEDS: HYDROCHLOROTHIAZIDE PO SCH (08:58)
--- NOTE | 2019-01-13 12:39 | HEMO/ONC PROGRESS NOTE ---
DATE: 01/13/2019 SUBJECTIVE/HISTORY OF PRESENT ILLNESS: The patient states she had a very good weekend. She is feeling a lot better today. She can feel that the cellulitis has decreased, as has the pain in her neck. She has been told that she might be going home today and she is very excited about that. OBJECTIVE: Vital Signs: Temperature 98.3 degrees, pulse rate 78, respiratory rate 16, blood pressure 129/89, O2 saturation 95% on room air. She is in 0/10 pain. Physical Examination: General: This is an elderly appearing female in no acute distress. Skin: Warm, dry, and intact without rashes or lesions. Neck: Slightly swollen to the right side of her neck. Tender with palpation. No redness or warmth appreciated. Swelling is significantly reduced compared to last Sunday. Lungs: Clear to auscultation. No signs of respiratory distress. Cardiovascular: Heart rate and rhythm regular. Normal S1, S2. Abdomen: Soft, nontender, without distention. Neurological: Alert, awake, and oriented. Psychiatric: Appropriate today. The patient has a history of paranoid schizophrenia but does not appear paranoid at the time. ASSESSMENT: 1. Cellulitis of right neck. 2. 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 3. Paranoid schizophrenia. 4. T2, N3 right breast cancer, status post chemotherapy. PLAN: The plan is for the patient to continue to be treated per Dr. Mulligan's recommendation. She knows to follow up with her medical doctor as well as follow up in the clinic for ongoing breast cancer surveillance. The patient is due to her next PET scan at the end of January and we will follow up with her in February for regular care. Dictated by ELIZA Avendaño for Omar Irwin MD Patient seen and examined. As above. Plan to discharge home on antibiotics. Also plan to continue Eliquis 10 mg twice a day for a total of 7 days followed by 5 mg twice a day. We will see her back in the clinic for ongoing follow-up and further management of her DVT and breast cancer. Omar Irwin M.D. cc: MD Seth Carson Jr, MD MTDD
--- NOTE | 2019-01-13 14:15 | DISCHARGE SUMMARY ---
ADMISSION DATE: 01/07/2019 DISCHARGE DATE: 01/13/2019 CONSULTATIONS: Dr. Irwin, Heme-Onc, Dr. Mulligan, Infectious Disease and Dr. Castellano, Surgery. FINAL DIAGNOSIS: 1. Thrombosis of the right internal jugular vein. 2. Cellulitis. 3. Breast cancer. SECONDARY DIAGNOSIS: 1. Hyperlipidemia. 2. Paranoid schizophrenia. 3. Hypertension. PLAN: We will discharge home on current medications. She has some antibiotic already at home some doxycycline which she will use and I will place her on Eliquis 10 mg p.o. b.i.d. for the next 3 days so she will have been on it for at least a week and then 5 mg p.o. b.i.d. 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 Patient also complained of a dry cough that has been chronic but we can find no source for this. HOSPITAL COURSE: Patient was placed on initially Rocephin and then daptomycin for cellulitis of the right neck area. She was placed on Eliquis. There is some question about how much this was really infection or just inflammation. She has had no fever last several days. Did not have much of a fever before that. We wanted to try save her port if at all possible. The swelling has gone down in her neck. OBJECTIVE: Blood pressure is 129/81, respirations 16, pulse 78, temperature 98.3 degrees Fahrenheit . HEENT: She is normocephalic. EOMS intact. PERRLA. Throat clear. Neck: Supple but she does have some swelling and tenderness in the right side. This has gone down since her admission. Lungs: Clear to auscultation and percussion without rhonchi, rales or wheezes. Heart: Regular rate and rhythm without murmurs, gallops, friction rubs. Abdomen: Soft. Active bowel sounds. No organomegaly or tenderness. Neurological: Intact grossly. PLAN: Will see patient back in my office this afternoon to clarify medications and will also plan to see her back in the office in about a week. cc: Seth Snowden Jr, MD
== END 2019-01-13 10:07 | disposition home or self-care (01) | DRG 315 ==
LOC: DIRADM 15:57 → 4N 16:03
PROVIDERS: ADMIT Emergency Medicine; ATTEND Emergency Medicine

== ENCOUNTER 2019-08-12 07:42 | Inpatient (IN) ==
[2019-08-12] MEDS ORDERED: COMBIVENT RESPIMAT INHALER INH ONE (08:58)
[2019-08-12] MEDS ORDERED: NS 1,000 ML IV ONE ×2 (08:58→10:42)
[2019-08-12] MEDS ORDERED: TORADOL IV ONE (09:00)
[2019-08-12] MEDS ORDERED: ROBITUSSIN PO ONE (09:00)
--- NOTE | 2019-08-12 09:20 | Diag Imaging Result Doc PS360 ---
CHEST-2 VIEWS - 08/12/2019 INDICATION: cough, SOB COMPARISON: 01/07/2019 FINDINGS: There is ill-defined infiltrate throughout the right midlung and lung base. There is a trace right pleural effusion. Stable trace infiltrate or atelectasis in the left lung base. Heart size is top normal. Stable right chest port in good position. Stable surgical clips in right axillary soft tissues. IMPRESSION: Infiltrate throughout the right midlung and lung base, nonspecific but compatible with pneumonia or viral infection. Trace right pleural effusion. Electronically signed by Denilson Bliss 08/12/2019 9:18 AM
--- NOTE | 2019-08-12 09:36 | EKG Report ---
Test Performed on : 08/12/2019 09:29:15 AM Test Reason : sob Blood Pressure : / mmHG Vent. Rate : 092 BPM Atrial Rate : 092 BPM P-R Int : 150 ms QRS Dur : 074 ms QT Int : 372 ms P-R-T Axes : 042 017 016 degrees QTc Int : 460 ms Normal sinus rhythm. Normal ECG When compared with ECG of 07-JAN-2019 17:24, Nonspecific T wave abnormality now evident in Lateral leads Unconfirmed Result
[2019-08-12 09:51] LABS: BASO# 0.04 X1000 (0.0-0.2); BASO% 0.5 % (0.0-0.8); EOS# 0.07 X1000 (0.0-0.7); EOS% 0.9 % (0.0-10.0); HEMATOCRIT 39.3 % (37.0-47.0); HEMOGLOBIN 12.3 g/dL (12.0-16.0); IMM GRAN# 0.02 X1000 (0.0-0.04); IMM GRAN% 0.3 % (0.0-0.5); LYMPH# 1.46 X1000 (1.2-3.4); LYMPH% 19.5 % (20.5-51.1); MCH 26.9 PG (27-31); MCHC 31.3 g/dL (33-37); MONO# 0.67 X1000 (0.11-0.59); MONO% 8.9 % (1.7-9.3); MPV 10.4 FL (7.4-10.4); NEUT# 5.23 X1000 (1.4-6.5); NEUT% 69.9 % (42.2-75.2); PLT 160 X1000 (130-400); RBC 4.57 XMIL (4.2-5.4); RDW 14.1 % (11.5-14.5); WBC 7.49 X1000 (4.8-10.8)
[2019-08-12 09:55] LABS: INR 1.05; PROTIME 13.8 Seconds (11.0-16.0)
[2019-08-12 09:56] LABS: PTT 30.8 Seconds (22.3-41.8)
[2019-08-12] MEDS ORDERED: ZITHROMAX 500 MG/NS 500 MG/250 ML IVPB IV ONE (10:08)
[2019-08-12] MEDS ORDERED: ROCEPHIN 1 GM in NS 50 ML IV ONE (10:08)
[2019-08-12 10:22] LABS: AGAP 12; ALB/GLOB RATIO 1.1; ALBUMIN 3.6 g/dL (3.5-5.0); ALKALINE PHOSPHATASE 211 U/L (32-104); BUN 12 mg/dL (8-22); CALCIUM 9.6 mg/dL (8.8-10.2); CHLORIDE 104 mmol/L (98-107); CK PROFILE 123 U/L (24-173); COSMO 283; CREATININE 0.8 mg/dL (0.5-0.9); ESTIMATED GFR > 60; GLUCOSE 103 mg/dL (70-104); GOT 52 U/L (10-30); GPT 55 U/L (10-36); POTASSIUM 3.4 mmol/L (3.5-5.1); SODIUM 142 mmol/L (136-145); TCO2 26 mmol/L (25-35); TOTAL BILIRUBIN 0.35 mg/dL (0.20-1.00); TOTAL PROTEIN 6.9 g/dL (6.3-8.3)
--- NOTE | 2019-08-12 10:40 | PROVIDER DOCUMENTATION ---
This chart was entered by Anna Henderson Scribe, acting as scribe for Tono Christian MD. HPI-General Adult - General Chief Complaint: Cough Stated Complaint: COUGHING,CANT BREATHE,BILA SIDE PAIN Time Seen by Provider: 08/12/19 08:51 Source: patient Allergies/Adverse Reactions: Patient Allergies Allergy/AdvReac Type Severity Reaction Status Date / Time No Known Allergies Allergy Verified 08/12/19 08:48 Home Medications: Home Medication List Medication Instructions Recorded Confirmed Last Taken Type Benztropine Mesylate 0.5 mg PO BID 03/04/18 01/08/19 04/08/18 History Buspirone HCl 30 mg PO BID 03/04/18 01/08/19 04/08/18 History Diltiazem HCl [Cartia Xt] 240 mg PO BID 03/04/18 01/08/19 04/08/18 History Potassium Chloride 20 meq PO DAILY 03/04/18 01/08/19 04/08/18 History ROSUVAstatin [Crestor] 20 mg PO QHS 03/04/18 01/08/19 04/08/18 History Valsartan/Hydrochlorothiazide 1 each PO DAILY 03/04/18 01/08/19 04/08/18 History [Valsartan-Hctz 320-25 mg Tab] Letrozole 2.5 mg PO DAILY 01/08/19 01/08/19 Unknown History Perphenazine 8 mg PO BID 01/08/19 01/08/19 Unknown History Apixaban [Eliquis] 5 mg PO BID #60 tab 01/13/19 Unknown Rx - History of Present Illness -Gen Adult Nature of Presenting Problems: 73yof presents to ED cc severe, non-productive cough that has increased over last 2 weeks and is causing bilateral sides of outer chest & flank pain with the cough and movement. Pt denies fever, chills or any known sick contacts. Pt is nontoxic and afebrile upon exam. Location of Pain/Injury: reports: upper body Quality of Pain: reports: aching Severity: reports: mild, moderate Onset/Duration: reports: last week Timing: reports: still present, getting worse Context/Activities at Onset: reports: light activity Modifying Factors: worse with: coughing, movement Associated Symptoms: reports: cough Similar Symptoms Previously?: No Recently seen or treated by another doctor?: No Review of Systems - Adult - REVIEW OF SYSTEMS - ADULT Constitutional: reports: see HPI. denies: chills, fever, fatique Eyes: reports: no symptoms reported Ears, Nose, Mouth & Throat: reports: no symptoms reported Cardiovascular: reports: no symptoms reported Respiratory: reports: see HPI, cough Gastrointestinal: reports: no symptoms reported Genitourinary: reports: see HPI, flank pain (bilateral) Musculoskeletal: reports: see HPI, muscle aches (both sides of outer chest) Integumentary: reports: no symptoms reported Neurological: reports: no symptoms reported Psychiatric: reports: no symptoms reported Endocrine: reports: no symptoms reported Hematologic/Lymphatic: reports: no symptoms reported Allergic/Immunologic: reports: no symptoms reported All Other Systems: Reviewed and Negative Past History - Adult - PAST MEDICAL HISTORY-ADULT Review of Records: reports: Nursing Assessment Review, Medications Reviewed, Social history reviewed & non-contributory. Major Childhood Illnesses: reports: denies history Cardiovascular: reports: denies history Respiratory: reports: denies history Gastrointestinal: reports: denies history Obstetrical/Gynecological: reports: denies history Genitourinary: reports: denies history Musculoskeletal: reports: denies history Neurological: reports: denies history Endocrine/Immune: reports: denies history Other Conditions: reports: denies history - IMMUNIZATION STATUS Childhood Immunizations: See Nurse Assessment Flu Vaccine: See Nurse Assessment - FAMILY HISTORY Family History: reviewed, not pertinent Physical Exam-General - PHYSICAL EXAM-ADULT Initial Vital Signs Reviewed: Yes - CONSTITUTIONAL General Appearance: appears well, alert, no apparent distress. negative: anxious, combative - EYES Eyes: PERRL/EOMI, pink conjunctivae. negative: photophobia - HEAD, EARS, NOSE, MOUTH & THROAT HENMT: normocephalic/atraumatic, moist mucous membranes. negative: angioedema - NECK Neck: supple, normal inspection - RESPIRATORY Respiratory: chest non-tender, lungs clear, normal breath sounds, other (tachypneic and paroxsymal cough). negative: rales - CARDIOVASCULAR Cardiovascular: normal peripheral pulses, no edema, tachycardia. negative: bradycardia - GASTROINTESTINAL (ABDOMEN) Abdominal Exam: normal bowel sounds, non tender, soft. negative: guarding, rebound - MUSCULOSKELETAL Extremity: normal inspection, normal capillary refill. negative: deformity - SKIN Integumentary: normal color, normal turgor, warm/dry. negative: diaphoresis, jaundice, rash - PSYCHIATRIC Psych/Mental Status: normal mood/affect, oriented x 3. negative: anxious Progress - PLAN OF CARE/RESULTS Progress/Plan/Lab Results: Vital Signs - 8 hr 08/12/19 07:46 Temperature 98.3 F Pulse Rate 85 Respiratory Rate 19 Blood Pressure 126/84 O2 Sat by Pulse Oximetry 97 Laboratory Results - last 24 hr 08/12/19 08/12/19 09:25 09:25 WBC 7.49 RBC 4.57 Hgb 12.3 Hct 39.3 MCV 86.0 MCH 26.9 L MCHC 31.3 L RDW Std Deviation 14.1 Plt Count 160 MPV 10.4 Immature Gran % (Auto) 0.3 Neut % (Auto) 69.9 Lymph % (Auto) 19.5 L [place] % (Auto) 8.9 Eos % (Auto) 0.9 Baso % (Auto) 0.5 Immature Gran # (Auto) 0.02 Neut # (Auto) 5.23 Lymph # (Auto) 1.46 [place] # (Auto) 0.67 H Eos # (Auto) 0.07 Baso # (Auto) 0.04 PT 13.8 INR 1.05 PTT (Actin FS) 30.8 Orders Category Date Time Status Cardiac Monitoring DIRECTED Care 08/12/19 08:56 Active Oxygen Therapy- ED Nursing DIRECTED Care 08/12/19 08:56 Active Saline Loc NOW Care 08/12/19 08:56 Active CHEST-2 VIEWS [RAD] Stat Exams 08/12/19 08:56 Completed BLOOD CULTURE [BLDCUL] Stat Lab 08/12/19 09:49 Results CBC WITH ELECTRONIC DIFF [HEME] Stat Lab 08/12/19 09:25 Completed CK PROFILE [SP CHEM] Stat Lab 08/12/19 09:25 Received COMPREHENSIVE METABOLIC PANEL [CHEM] Stat Lab 08/12/19 09:25 Received INFLUENZA SCREEN A/B Stat Lab 08/12/19 09:47 Received LACTATE, PLASMA [CHEM] Stat Lab 08/12/19 09:25 Received PRO B-NATRIURETIC PEPTIDE Stat Lab 08/12/19 09:25 Received PROTIME WITH INR [COAG] Stat Lab 08/12/19 09:25 Completed PTT [COAG] Stat Lab 08/12/19 09:25 Completed TROPONIN T HIGH SENSITIVITY Stat Lab 08/12/19 09:25 Received 0.9% Sodium Chloride Inj [Ns] 1,000 ml Med 08/12/19 08:58 Active IV 999 mls/hr Guaifenesin [Robitussin] Med 08/12/19 09:00 Discontinued 10 ml PO NOW ONE Ipratropium/Albuterol INH [Combivent Respimat Inhaler] Med 08/12/19 08:58 Discontinued 4 puff INH NOW ONE Ketorolac [Toradol] Med 08/12/19 09:00 Discontinued 15 mg IV NOW ONE CP/SOB/Palp >45 yrs of Age Stat Oth 08/12/19 08:56 Ordered MDI Treatments Stat Oth 08/12/19 08:59 Active EKG [EKG] Stat Ther 08/12/19 08:56 Draft Result Diagrams: 08/12/19 09:25 08/12/19 09:25 - REASSESSMENT Reassessment #1 Time Reassessed: 10:30 Status: improving (States feels a little better, states does not think she can go home by herself due to severe cough. Have given 3 combivent MDI treatments, po robitussin, IV, and IV rocephin/zithromax for CAP. Does not have sepsis.) - EKG 1 Time of EKG reading by physician:: 10:15 EKG Read and Signed by:: Tono Christian EKG Interpretation (*Must complete 3 of following elements*): Abnormal (slight artifact present; biatrial enlargement; NO STEMI) Rate: 92 Rhythm: NSR [place]: normal QRS: normal NE Interval: normal - XRAY 1 XRAY: Bilateral XRAY Study: Chest Impression: See EMR Report (IMPRESSION: Infiltrate throughout the right midlung and lung base, nonspecific but compatible with pneumonia or viral infection. Trace right pleural effusion. Electronically signed by Denilson Bliss 08/12/2019 9:18 AM) - CONSULTS/PCP/HOSPITALIST Notification #1 *Consult/PCP/Hospitalist*: Guillermo paged at 1030 Time Discussed: 10:39 Consult Disposition: Admit (requests I write orders, he will follow-up on the floor) Departure - Departure Date of Disposition Decision: 08/12/19 Time of Disposition Decision: 10:32 DIAGNOSIS: Community acquired bacterial pneumonia Disposition: ADMITTED INPATIENT 09 Certified Medical Emergency: Emergent Condition: Stable Additional Instructions: ED Follow Up Instructions: You have been treated by a care provider in the Emergency Department. These instructions are being provided to you so you can have an understanding of how to care for yourself upon discharge. Upon discharge from the Emergency Departm ent, you are responsible for making arrangements for follow-up care by a physician of your choice. Take all prescribed medications as directed. Return to the Emergency Department immediately for any new or worsening symptoms. You may call the Physician Referral phone number at [phone] to obtain a list of Physicians who are taking new patients. Referrals and Follow-Ups: Seth Snowden Jr, MD [Primary Care Provider] - - Critical Care Note This patient required my direct & personal management of CC.: No Attestation - Physician/ [place] Attestation Patient care was provided by Advanced Practice Provider:: No The physician spent face to face time with patient:: Yes Advanced Practice Provider documentation review:: Supervising physician onsite and consulted in the evaluation and care of this patient. The physician did have a face to face encounter with the patient. This chart was documented by the indicated scribe, (Anna Henderson Scribe) and accurately reflects the services I performed and decisions made by me, Tono Christian MD, as attested by the provider's signature.
[2019-08-12] MEDS ORDERED: ZOFRAN PO PRN (10:41)
[2019-08-12] MEDS ORDERED: ROBITUSSIN CF PO PRN (10:43)
[2019-08-12] MEDS ORDERED: DUONEB (A & A) INH SCH ×2 (11:30→15:00)
[2019-08-12] MEDS ORDERED: SOLU-MEDROL IV SCH (12:15)
--- NOTE | 2019-08-12 12:19 | HISTORY AND PHYSICAL ---
SUBJECTIVE: Cough for 4 or 5 days. HISTORY OF PRESENT ILLNESS: Past history is positive for hypertension, hypercholesterolemia, GERD, breast cancer on the right, tremors, metastatic breast cancer to the spine and pelvic area, and paranoid schizophrenia. The patient had a colonoscopy just a few days ago. Comes in with more cough, and she appears to have a right middle and right lower lobe pneumonia. HOME MEDICATIONS: Include propranolol 10 mg twice a day, zinc sulfate 1 capsule by mouth twice daily, vitamin B complex 1 capsule per day, Tessalon Perles 200 mg 3 times a day, Eliquis 5 mg orally 2 times a day for previous blood clots, buspirone 15 mg p.o. b.i.d., Zyrtec 10 mg daily, potassium 10 mEq two of these by mouth a day, valsartan 320 mg daily, Flonase nasal spray 2 puffs to each nostril twice a day, perphenazine 8 mg 2 tablets or 16 mg twice a day, Cogentin or benztropine 0.5 mg twice a day, Singulair 10 mg daily, Cartia XR 240 mg 1 p.o. b.i.d., rosuvastatin 20 mg at bedtime, Fosamax 70 mg once a week, omeprazole 40 mg daily, letrozole 2.5 mg p.o. daily. PAST SURGICAL HISTORY: The patient has had a partial hysterectomy. She had breast surgery on the right. FAMILY HISTORY: Includes brother, sister, daughter, and natural son all alive and well. Father and mother and natural sister have . Natural sister had lung cancer. SOCIAL HISTORY: Has never used tobacco. Does not use alcohol. Has paranoid schizophrenia, and is treated by psychiatrist. REVIEW OF SYSTEMS: Neurological: Denies headaches, seizures, visual problems, hearing problems. Constitutional: Denies chills, fever, fatigue. Neurological: Denies visual problems, hearing problems, headaches. Pulmonary: Has had a cough that has been nonproductive. Has had some wheezing. Cardiovascular: Denies chest pain, heart palpitations, PND, orthopnea. GI: Denies hematochezia, hematemesis, melena, constipation, diarrhea. Genitourinary: Denies any difficulty with urination. Musculoskeletal: Denies any injuries or arthritis. Endocrine: Denies diabetes or thyroid disease. No pituitary problems. Psychiatric: Does have paranoid schizophrenia, takes medication for that. PHYSICAL EXAMINATION: VITAL SIGNS: Blood pressure is 126/84, respirations 19, pulse 85, temperature 98.3 degrees Fahrenheit. Weight is 193 pounds. HEENT: She is normocephalic. EOMS intact. PERRLA. Throat clear. Fundi not seen well due to constriction of pupils. She does wear corrective lenses. NECK: Supple without thyromegaly, lymphadenopathy, or carotid bruits. LUNGS: Rales, especially on the right side, with some expiratory wheezing. HEART: Regular rate and rhythm without murmurs, gallops, friction rubs. ABDOMEN: Soft with active bowel sounds. No organomegaly or tenderness. PELVIC/RECTAL/BREASTS: Deferred at this point. NEUROLOGIC: Cranial nerves II through XII are intact grossly. Sensory and motor intact. Reflexes 1+ all. ASSESSMENT: 1. Right lower lobe and right middle lobe pneumonia. 2. Metastatic breast cancer. 3. Paranoid schizophrenia. 4. Hypertension. 5. Tremors, treated with propranolol. 6. Gastroesophageal reflux disease. PLAN: Will admit, treat with IV antibiotics, repeat chest x-ray soon. It should be noted on laboratory that her liver enzymes were elevated. She has had an MRI scan of her lumbar spine and body scan nuclear medicine imaging, but I do not see a CT scan of her abdomen. She is overweight. With her history of metastatic cancer, we may want to do a CT scan of her abdomen and chest during this hospitalization. cc: Seth Snowden Jr, MD
--- NOTE | 2019-08-12 17:06 | Diag Imaging Result Doc PS360 ---
CT THORAX/ABD/PELVIS W/WO CON - 08/12/2019 INDICATION: met breast ca/pneumonia/elevated LFTs COMPARISON: 12/11/2018 FINDINGS: CHEST: On the noncontrast exam, there are no abnormal calcifications. On the contrast enhanced exam, there is stable skin thickening of the right breast. Stable right chest port. No adenopathy in the chest. There is a small right and trace left pleural effusion. There are some faint infiltrate in the right upper lobe, right middle lobe, in the lingula. Heart size is grossly normal. There is a small sclerotic bony metastasis at T10. Abdomen pelvis: There are numerous hypoenhancing masses in the liver. The liver is probably 80% replaced. There are calcified gallstones in the gallbladder stable from prior. No biliary dilation. The kidneys, adrenals, spleen, and pancreas are normal. No bowel obstruction or inflammation. Trace ascites. Uterus is absent. Urinary bladder and rectum are normal. There are some faint bony lucencies in the lumbar spine suggesting lucent metastases. Most notably on the right side at L4. IMPRESSION: 1. Metastatic breast cancer, with extensive liver and some bone metastases. 2. Faint infiltrate in the right upper lobe and lingula, nonspecific. Bilateral pleural effusions. 3. Trace ascites. 4. Gallstones. This exam was performed using automated exposure control, adjustment of mA or kV according to patient size, and/or use of iterative reconstruction technique Electronically signed by Denilson Bliss 08/12/2019 5:04 PM
[2019-08-12] MEDS: ROCEPHIN 1 GM in NS 50 ML IV SCH (20:18)
[2019-08-12] MEDS ORDERED: CARDIZEM CD PO SCH (21:00)
[2019-08-12] MEDS ORDERED: CRESTOR PO SCH (21:00)
[2019-08-12] MEDS ORDERED: BUSPAR PO SCH (21:00)
[2019-08-12] MEDS ORDERED: COGENTIN PO SCH (21:00)
[2019-08-12] MEDS ORDERED: ELIQUIS PO SCH (21:00)
[2019-08-12] MEDS ORDERED: TRILAFON PO SCH (21:00)
[2019-08-13 01:44] LABS: URINE SOURCE CLEAN CATCH
[2019-08-13 02:16] LABS: BILIRUBIN URINE NEGATIVE (NEGATIVE); BLOOD URINE NEGATIVE (NEGATIVE); COLOR YELLOW; GLUCOSE URINE NEGATIVE (NEGATIVE); KETONE URINE NEGATIVE (NEGATIVE); LEUKOCYTES URINE TRACE (NEGATIVE); NITRITE URINE NEGATIVE (NEGATIVE); PH URINE 6.5; PROTEIN URINE TRACE mg/dL (NEGATIVE); SP GRAVITY URINE 1.047; TURBIDITY URINE CLEAR (CLEAR); UR EPITHELIAL CELLS <10 /HPF (<10); URINE BACTERIA NEGATIVE /HPF; URINE RBC <10 /HPF (<10); UROBILINOGEN URINE NORMAL (NORMAL)
[2019-08-13] MEDS ORDERED: HYDROCHLOROTHIAZIDE PO SCH (09:00)
[2019-08-13] MEDS ORDERED: KLOR-CON PO SCH (09:00)
[2019-08-13] MEDS ORDERED: FEMARA PO SCH (09:00)
[2019-08-13] MEDS ORDERED: DIOVAN PO SCH (09:00)
[2019-08-13] MEDS: ROCEPHIN 1 GM in NS 50 ML IV SCH ×2 (09:02→21:26)
--- NOTE | 2019-08-13 09:32 | PROGRESS NOTE ---
DATE: 08/13/2019 SUBJECTIVE: The patient is still coughing. CT scan of chest, abdomen, and pelvis was done and it did show metastatic breast cancer with extensive liver and some bone metastases. We already knew she had bone metastases, a faint infiltrate in the right upper lobe and lingula nonspecific, bilateral pleural effusions, trace ascites and gallstones. She is still coughing. OBJECTIVE: Blood pressure 139/77, respirations 19, pulse 88, temperature 98.9 degrees.HEENT: She is normocephalic. EOMs intact. PERRLA. Throat clear. Lungs: Clear to auscultation and percussion without rhonchi, rales, or wheezes this morning except for a little wheezing on end expiration. Heart: Regular rate and rhythm without murmurs, gallops or friction rubs. Abdomen: Soft. Active bowel sounds. No organomegaly or tenderness. Neurological: Intact grossly. LABORATORY DATA: White count 7490, that was yesterday. Potassium was slightly low at 3.4 yesterday. Lab work is pending today. ASSESSMENT: 1. Pneumonia. 2. Metastatic breast cancer. 3. Mild hypokalemia. PLAN: I have consulted Dr. Irwin. Apparently he personally became ill, but sent his nurse practitioner, but I do not have a note on the chart from her yet. cc: Seth Snowden Jr, MD
--- NOTE | 2019-08-13 13:38 | HEMO/ONC CONSULTATION ---
DATE: 08/13/2019 REASON FOR CONSULTATION: She is a known patient of ours for the treatment of metastatic breast cancer. HISTORY OF PRESENT ILLNESS: Ms. Cori Silva is a 73-year-old female with a history of metastatic breast cancer and paranoid schizophrenia. The patient presented to her primary care's office with a cough that had been increasing and pain in her chest. Her workup in the ER with a chest x-ray showed right middle and lower lobe pneumonia. She was admitted for further management. PAST MEDICAL HISTORY: Includes hypertension, hypercholesterolemia, GERD, metastatic breast cancer to the spine and liver, and paranoid schizophrenia. PAST SURGICAL HISTORY: Includes partial hysterectomy and right breast surgery. SOCIAL HISTORY: The patient denies tobacco, alcohol, or illicit drug use. ALLERGIES: No known drug allergies. HOME MEDICATIONS: 1. Propranolol. 2. Zinc. 3. Vitamin B complex. 4. Tessalon Perles. 5. Eliquis. 6. Buspirone. 7. Zyrtec. 8. Potassium. 9. Valsartan. 10. Flonase. 11. Perphenazine. 12. Cogentin. 13. Benztropine. 14. Singulair. 15. Cardia. 16. Rosuvastatin. 17. Fosamax. 18. Omeprazole. 19. Letrozole. REVIEW OF SYSTEMS: The patient complains of productive cough and pain in her ribs. All other review of systems are negative. PHYSICAL EXAMINATION: Vital Signs: Temperature 97.9 degrees, pulse rate 81, respiratory rate 19, blood pressure 149/86, O2 saturation 99% on nasal cannula at 2 L. The patient is in 6/10 pain. General: The patient has difficulty conversing due to cough this morning. She seems more forgetful than normal. HEENT: Sclerae anicteric. PERRLA. Oral mucosa dry. Respiratory: Coarse respiratory sounds more so on the right. Wheezing noted throughout. Cardiovascular: Normal S1, S2. Heart rate and rhythm regular. Abdomen: Soft, nontender, and nondistended. Bowel sounds normal. Psychological: The patient does not seem paranoid at this time, but she is repetitive and is forgetful. LABORATORY: No labs drawn today. On 08/12/2019, WBC 7.49, hemoglobin 12.3, hematocrit 39.3, and platelet count 160,000. Sodium 142, potassium 3.4, AST 52, ALT 55, and alkaline phosphatase 211. Chest x-ray shows infiltrate in the right mid lung and lung base. Trace right pleural effusion. Chest, abdomen, and pelvis CT shows metastatic breast cancer with extensive liver and bony metastasis to T10 and L4. Faint infiltrate in the right upper lobe and lingula. Bilateral pleural effusions. Trace ascites and gallstones. ASSESSMENT AND PLAN: 1. 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 She was just recently diagnosed with metastasis. The patient's tumor marker has been trending up in the clinic. The patient states she wants to treat. The patient is scheduled to come back into the office when she is cleared from her pneumonia to discuss treatment options and further plans. 2. Right lower lobe and right middle lobe pneumonia. Continue treatment per PMD. The patient is currently being treated with antibiotics. 3. Paranoid schizophrenia. Continue to monitor. 4. Elevated liver enzymes. At her last office visit on 08/01/2019, the patient did not have elevated liver enzymes. We will continue to monitor. 5. Right internal jugular DVT Port-A-Cath related. The patient needs to remain on Eliquis therapy for DVT treatment and further prevention. Dictated by ELIZA Avendaño for Omar Irwin MD cc: MD Seth Carson Jr, MD MTDD
[2019-08-13] MEDS: ZITHROMAX 500 MG/NS 500 MG/250 ML IVPB IV SCH (13:50)
[2019-08-13] MEDS: TESSALON PO PRN (21:33)
[2019-08-14 05:23] LABS: BASO# 0.03 X1000 (0.0-0.2); BASO% 0.6 % (0.0-0.8); EOS# 0.08 X1000 (0.0-0.7); EOS% 1.6 % (0.0-10.0); HEMATOCRIT 33.9 % (37.0-47.0); HEMOGLOBIN 10.8 g/dL (12.0-16.0); LYMPH# 0.88 X1000 (1.2-3.4); LYMPH% 17.1 % (20.5-51.1); MCH 27.5 PG (27-31); MCHC 31.9 g/dL (33-37); MCV 86.3 FL (81-99); MONO# 0.56 X1000 (0.11-0.59); MONO% 10.9 % (1.7-9.3); MPV 11.1 FL (7.4-10.4); NEUT# 3.61 X1000 (1.4-6.5); NEUT% 69.8 % (42.2-75.2); PLT 179 X1000 (130-400); RBC 3.93 XMIL (4.2-5.4); RDW 13.7 % (11.5-14.5); WBC 5.16 X1000 (4.8-10.8)
[2019-08-14 05:40] LABS: AGAP 10; BUN 13 mg/dL (8-22); CALCIUM 8.8 mg/dL (8.8-10.2); CHLORIDE 99 mmol/L (98-107); COSMO 268; CREATININE 0.6 mg/dL (0.5-0.9); ESTIMATED GFR > 60; GLUCOSE 85 mg/dL (70-104); POTASSIUM 2.9 mmol/L (3.5-5.1); SODIUM 134 mmol/L (136-145); TCO2 25 mmol/L (25-35)
--- NOTE | 2019-08-14 06:25 | Diag Imaging Result Doc PS360 ---
CHEST-PORTABLE - 08/14/2019 INDICATION: pneumonia COMPARISON: 08/12/2019 FINDINGS: Stable right chest port. There are mixed changes, with improvement in the infiltrate at the peripheral right midlung and lung base, and slight worsening in the medial right lung base. The left lung remains clear. No pneumothorax or pleural effusion. Heart size remains normal. IMPRESSION: Mixed changes, with overall little change from prior. Electronically signed by Denilson Bliss 08/14/2019 6:23 AM
[2019-08-14] MEDS ORDERED: VANCOMYCIN IV PER PHARMACY MISC SCH (09:15)
[2019-08-14] MEDS ORDERED: BUSPAR PO PRN (09:24)
--- NOTE | 2019-08-14 09:29 | PROGRESS NOTE ---
DATE: 08/14/2019 SUBJECTIVE: The patient says she is still coughing, but she did not cough any while I was in the room. We caught her getting some Tessalon Perles from the office yesterday when she called complaining again of her cough. OBJECTIVE: Vital Signs: Temperature of 100.1 degrees Fahrenheit this morning, blood pressure 133/96, respirations 17, pulse 91. Chest x-ray is unchanged. HEENT: She is normocephalic. EOMS intact. PERRLA. Throat clear. Lungs: Sound fairly clear to auscultation. The chest x-ray shows continued infiltrates on the right. Abdomen: Soft. Active bowel sounds. No organomegaly or tenderness. Neurological exam: Intact grossly. ASSESSMENT: 1. Right middle lobe and right lower lobe pneumonias. 2. Metastatic breast cancer. PLAN: Continue IV antibiotics. May broaden spectrum if she is still running a fever. cc: Seth Snowden Jr, MD
[2019-08-14] MEDS: TAZIDIME 2 GM/NS 2 GM/100 ML IVPB IV SCH ×2 (09:35→17:23)
[2019-08-14] MEDS ORDERED: VANCOMYCIN 1,500 MG in NS 250 ML IV ONE (11:00)
[2019-08-14] MEDS: ZITHROMAX 500 MG/NS 500 MG/250 ML IVPB IV SCH (13:11)
--- NOTE | 2019-08-14 13:21 | HEMO/ONC PROGRESS NOTE ---
DATE: 08/14/2019 SUBJECTIVE: Ms. Silva is sitting up in her bedside chair this morning, eating her breakfast. She does not seem to have the persistent cough that she had yesterday, although she states that she does. I did not witness any coughing while I was in the room with her. The patient's appetite has remained good. She denies any pain. She questions when she will see Dr. Irwin. She is very concerned about her cancer. OBJECTIVE: Vital Signs: Temperature 100.1 degrees, pulse rate 91, respiratory rate 17, blood pressure 133/96, O2 saturation 97% on room air. She is in 0/10 pain. General: The patient appears in no acute distress. HEENT: Sclerae anicteric. PERRLA. Oral mucosa is normal. Cardiovascular: Normal S1, S2. Heart rate and rhythm regular. Respiratory: Lungs sound mostly clear to auscultation. Abdomen: Soft, nontender, nondistended. Neurological: Alert and oriented for the most part. Psychological: The patient does not seem paranoid at this time, but she is repetitive and forgetful. LABORATORY DATA: WBCs 5.16, hemoglobin 10.8, hematocrit 33.9, platelet count 179,000. Sodium 134, potassium 2.9. ASSESSMENT AND PLAN: 1. 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 The patient has just been recently diagnosed with her metastasis. She has an appointment to come back to the office when she is cleared from her pneumonia to discuss further treatment options and further plans. 2. Right lower lobe and right middle lobe pneumonia. Continue treatment per primary medical doctor. She is on antibiotics, and thinks her cough has gotten better. 3. Paranoid schizophrenia. Aware. Continue the patient on medication. 4. Deep venous thrombosis prophylaxis. The patient needs to remain on Eliquis as she has a past history of right internal jugular deep venous thrombosis. She also needs to get out of bed as often as she would like in the room. 5. Electrolyte abnormalities. Replete per hospital protocol or per primary medical doctor. Dictated by ELIZA Avendaño for Omar Irwin MD cc: MD Seth Carson Jr, MD
[2019-08-14] MEDS: TESSALON PO SCH ×2 (13:33→17:41)
[2019-08-14] MEDS: TESSALON PO PRN (17:23)
[2019-08-14] MEDS: CARDIZEM CD PO SCH (22:02)
[2019-08-14] MEDS: TRILAFON PO SCH (22:02)
[2019-08-14] MEDS: ZINC SULFATE PO SCH (22:02)
[2019-08-14] MEDS: SINGULAIR PO SCH (22:02)
[2019-08-14] MEDS: ELIQUIS PO SCH (22:02)
[2019-08-14] MEDS: CRESTOR PO SCH (22:02)
[2019-08-14] MEDS: COGENTIN PO SCH (22:03)
[2019-08-14] MEDS: INDERAL PO SCH (22:03)
[2019-08-15] MEDS: TYLENOL PO PRN ×3 (00:39→22:47)
[2019-08-15] MEDS: TAZIDIME 2 GM/NS 2 GM/100 ML IVPB IV SCH ×3 (02:39→20:07)
[2019-08-15 05:18] LABS: BASO# 0.02 X1000 (0.0-0.2); BASO% 0.4 % (0.0-0.8); EOS# 0.04 X1000 (0.0-0.7); EOS% 0.7 % (0.0-10.0); HEMATOCRIT 34.4 % (37.0-47.0); HEMOGLOBIN 11.2 g/dL (12.0-16.0); IMM GRAN# 0.02 X1000 (0.0-0.04); IMM GRAN% 0.4 % (0.0-0.5); LYMPH# 0.88 X1000 (1.2-3.4); LYMPH% 15.9 % (20.5-51.1); MCH 27.7 PG (27-31); MCHC 32.6 g/dL (33-37); MCV 85.1 FL (81-99); MONO# 0.57 X1000 (0.11-0.59); MONO% 10.3 % (1.7-9.3); MPV 10.3 FL (7.4-10.4); NEUT% 72.3 % (42.2-75.2); PLT 135 X1000 (130-400); RBC 4.04 XMIL (4.2-5.4); RDW 13.4 % (11.5-14.5); WBC 5.53 X1000 (4.8-10.8)
[2019-08-15 05:29] LABS: AGAP 11; BUN 11 mg/dL (8-22); CALCIUM 9.4 mg/dL (8.8-10.2); CHLORIDE 104 mmol/L (98-107); COSMO 281; CREATININE 0.5 mg/dL (0.5-0.9); ESTIMATED GFR > 60; GLUCOSE 98 mg/dL (70-104); POTASSIUM 3.1 mmol/L (3.5-5.1); SODIUM 141 mmol/L (136-145); TCO2 26 mmol/L (25-35)
[2019-08-15] MEDS: PRILOSEC PO SCH (07:10)
--- NOTE | 2019-08-15 08:29 | HEMO/ONC PROGRESS NOTE ---
DATE: 08/15/2019 SUBJECTIVE: Ms. Silva is sitting up in her bedside chair. She is about to eat her breakfast. She states she feels so much better. She does not have a cough at this time and she admits to it. Her lung sounds clear. She says she is not ready to go home today, but she would like to go home this weekend. She denies any complaints. OBJECTIVE: Vital Signs: Temperature 98.1 degrees, pulse rate 73, respiratory rate 21, blood pressure 165/105, O2 saturation 97% on room air. She is in 0/10 pain. PHYSICAL EXAMINATION: General: The patient is in no acute distress. She is not paranoid. Cardiovascular: Regular heart rate and rhythm. Respiratory: Lungs sound mostly clear to auscultation. Abdomen: Soft, nontender, nondistended. Neurological: Alert and oriented. LABORATORY: WBCs 5.53, hemoglobin 11.2, hematocrit 34.4, platelet count 135,000. Sodium 141, potassium 3.1. ASSESSMENT AND PLAN: 1. Metastatic right breast cancer to the liver and the spine. The patient is looking forward to getting in the clinic and starting treatment to fight her cancer. She has an appointment for next week to come in and discuss further treatment options and further plans. She is hoping to be discharged over the or Sunday. Please call if we are needed over the weekend. 2. Right lower lobe and right middle lobe pneumonia. Continue treatment per her medical doctor. Her cough has improved. She appears to be improving. 3. Paranoid schizophrenia. Aware. Continue the patient on her appropriate medications. 4. Deep venous thrombosis prophylaxis. The patient continues on Eliquis. She is also getting out of bed as she needs to often during the day. 5. Electrolyte abnormalities. Her potassium remains low. Continue to replete per hospital protocol per medical doctor. Dictated by ELIZA Avendaño for Omar Irwin MD cc: MD Seth Carson Jr, MD MTDD
--- NOTE | 2019-08-15 10:36 | PROGRESS NOTE ---
DATE: 08/15/2019 SUBJECTIVE: The patient says she is still coughing but overall feeling better. OBJECTIVE: Vital Signs: Blood pressure 165/105, respirations 20, pulse 73, temperature 98.1 degrees Fahrenheit. We just restarted her home medications which should help her blood pressure. HEENT: She is normocephalic. Extraocular movements are intact. PERRLA. Throat clear. Lungs: Sound clear to auscultation and percussion without rhonchi, rales, or wheezes. Heart: Regular rate and rhythm without murmurs, gallops, friction rubs. Abdomen: Soft, active bowel sounds. No organomegaly or tenderness. IMAGING: Chest x-ray still showed right middle lobe and right lower lobe pneumonia on the . We did make some changes in her antibiotics yesterday. ASSESSMENT: 1. Right lower lobe and right middle lobe pneumonia. 2. Metastatic breast cancer. PLAN: Continue treatment. Get another chest x-ray tomorrow. cc: Seth Snowden Jr, MD
[2019-08-15] MEDS: FEMARA PO SCH (10:54)
[2019-08-15] MEDS: DIOVAN PO SCH (10:54)
[2019-08-15] MEDS: ZYRTEC PO SCH (10:55)
[2019-08-15] MEDS: ELIQUIS PO SCH ×2 (10:55→20:02)
[2019-08-15] MEDS: KLOR-CON PO SCH (10:55)
[2019-08-15] MEDS: CARDIZEM CD PO SCH ×2 (10:55→20:02)
[2019-08-15] MEDS: TESSALON PO SCH ×3 (10:55→20:01)
[2019-08-15] MEDS: COGENTIN PO SCH ×2 (10:55→20:01)
[2019-08-15] MEDS: TRILAFON PO SCH ×2 (10:56→20:02)
[2019-08-15] MEDS: ZINC SULFATE PO SCH ×2 (10:56→20:01)
[2019-08-15] MEDS: INDERAL PO SCH ×2 (10:56→20:02)
[2019-08-15] MEDS: VANCOMYCIN 1,300 MG in NS 250 ML IV SCH (13:40)
[2019-08-15] MEDS: ZITHROMAX 500 MG/NS 500 MG/250 ML IVPB IV SCH (16:32)
[2019-08-15] MEDS: SINGULAIR PO SCH (20:01)
[2019-08-15] MEDS: CRESTOR PO SCH (20:01)
[2019-08-16] MEDS: TAZIDIME 2 GM/NS 2 GM/100 ML IVPB IV SCH ×3 (03:58→21:26)
[2019-08-16 05:43] LABS: BASO# 0.03 X1000 (0.0-0.2); BASO% 0.6 % (0.0-0.8); EOS# 0.17 X1000 (0.0-0.7); EOS% 3.2 % (0.0-10.0); HEMATOCRIT 34.4 % (37.0-47.0); LYMPH# 0.96 X1000 (1.2-3.4); LYMPH% 18.1 % (20.5-51.1); MCH 27.3 PG (27-31); MCV 85.4 FL (81-99); MONO# 0.66 X1000 (0.11-0.59); MONO% 12.5 % (1.7-9.3); MPV 10.5 FL (7.4-10.4); NEUT# 3.47 X1000 (1.4-6.5); NEUT% 65.6 % (42.2-75.2); PLT 146 X1000 (130-400); RBC 4.03 XMIL (4.2-5.4); RDW 13.4 % (11.5-14.5); WBC 5.29 X1000 (4.8-10.8)
[2019-08-16 06:06] LABS: AGAP 11; BUN 6 mg/dL (8-22); CHLORIDE 105 mmol/L (98-107); COSMO 277; CREATININE 0.6 mg/dL (0.5-0.9); ESTIMATED GFR > 60; GLUCOSE 96 mg/dL (70-104); POTASSIUM 2.9 mmol/L (3.5-5.1); SODIUM 140 mmol/L (136-145); TCO2 24 mmol/L (25-35)
[2019-08-16] MEDS: PRILOSEC PO SCH (06:41)
[2019-08-16] MEDS: TYLENOL PO PRN ×2 (06:45→21:28)
--- NOTE | 2019-08-16 07:42 | Diag Imaging Result Doc PS360 ---
EXAM: CHEST-PORTABLE HISTORY: pneumonia TECHNIQUE: Single view COMPARISON: 08/14/2019 FINDINGS: No change in the right jugular portacatheter. No pneumothorax. The patient is rotated to the right. The heart is enlarged. The vessels are mildly distended. No pleural effusions identified. No consolidation. Surgical clips in the right axilla. IMPRESSION: Cardiomegaly with mild pulmonary edema. Electronically signed by Javy Ellis 08/16/2019 7:40 AM
[2019-08-16] MEDS: KLOR-CON PO SCH ×2 (09:05→21:28)
[2019-08-16] MEDS: ZYRTEC PO SCH (09:05)
[2019-08-16] MEDS: FEMARA PO SCH (09:05)
[2019-08-16] MEDS: COGENTIN PO SCH ×2 (09:06→21:29)
[2019-08-16] MEDS: TRILAFON PO SCH ×2 (09:06→21:28)
[2019-08-16] MEDS: TESSALON PO SCH ×3 (09:06→21:27)
[2019-08-16] MEDS: CARDIZEM CD PO SCH ×2 (09:06→21:29)
[2019-08-16] MEDS: INDERAL PO SCH ×2 (09:06→21:28)
[2019-08-16] MEDS: ELIQUIS PO SCH ×2 (09:06→21:28)
[2019-08-16] MEDS: ZINC SULFATE PO SCH ×2 (09:08→21:28)
[2019-08-16] MEDS ORDERED: LASIX IV ONE (10:30)
[2019-08-16] MEDS: VANCOMYCIN 1,300 MG in NS 250 ML IV SCH (10:54)
--- NOTE | 2019-08-16 11:05 | PROGRESS NOTE ---
DATE: 08/16/2019 SUBJECTIVE: The patient says she is still coughing. OBJECTIVE: Vital Signs: Temperature 98.1 degrees Fahrenheit, pulse 63 and regular, respirations 20, blood pressure 142/85. It was 124/74 earlier. Oxygen saturations 95% on 3 L. HEENT: She is normocephalic. EOMs intact. PERRLA. Throat clear. Lungs: The lungs have a few wheezes and rales in the right base. Heart: Regular rate and rhythm without murmurs, gallops, friction rubs. Abdomen: Soft. Active bowel sounds. No organomegaly or tenderness. Neurologic: Intact grossly. DIAGNOSTIC DATA: Chest x-ray shows that she was a little malaligned, but it made her heart appear enlarged and it was read as enlarged by the Radiologist, also with a little pulmonary edema. Looking at her other chest x-rays, I did not see any cardiomegaly, but it does look different. She has not complained of any chest pain. We will go ahead and get an echocardiogram and give her some Lasix 40 mg IV in a one-time dose and get another chest x-ray this evening. We will get a proBNP. ASSESSMENT: 1. Right lower lobe pneumonia. 2. Questionable cardiomegaly. 3. Metastatic breast cancer. 4. Hypokalemia, with a potassium of 4.9. We will increase her potassium supplementation. PLAN: Echocardiogram. Repeat chest x-ray. Lasix. Continue IV antibiotics. Replace potassium. cc: Seth Snowden Jr, MD
[2019-08-16] MEDS: DIOVAN PO SCH (11:08)
--- NOTE | 2019-08-16 17:15 | Diag Imaging Result Doc PS360 ---
EXAM: CHEST-2 VIEWS HISTORY: pneumonia and pulm edema TECHNIQUE: Single view COMPARISON: 08/16/2019 FINDINGS: The lungs are well expanded except for a small amount of basilar atelectasis. Tiny pleural effusions. No cardiomegaly. No pulmonary edema. No consolidation. No change in the right jugular portacatheter. IMPRESSION: Tiny effusions with basilar atelectasis Electronically signed by Javy Ellis 08/16/2019 5:13 PM
[2019-08-16] MEDS: ZITHROMAX 500 MG/NS 500 MG/250 ML IVPB IV SCH (18:31)
[2019-08-16] MEDS: CRESTOR PO SCH (21:28)
[2019-08-16] MEDS: SINGULAIR PO SCH (21:29)
[2019-08-17] MEDS: TAZIDIME 2 GM/NS 2 GM/100 ML IVPB IV SCH ×3 (04:27→21:21)
[2019-08-17] MEDS: PRILOSEC PO SCH (06:15)
[2019-08-17] MEDS: FEMARA PO SCH (08:50)
[2019-08-17] MEDS: TRILAFON PO SCH ×2 (08:51→20:26)
[2019-08-17] MEDS: CARDIZEM CD PO SCH ×2 (08:51→20:26)
[2019-08-17] MEDS: KLOR-CON PO SCH ×4 (08:51→17:26)
[2019-08-17] MEDS: ZINC SULFATE PO SCH ×2 (08:51→20:25)
[2019-08-17] MEDS: ZYRTEC PO SCH (08:51)
[2019-08-17] MEDS: COGENTIN PO SCH ×2 (08:51→20:26)
[2019-08-17] MEDS: TESSALON PO SCH ×3 (08:51→20:27)
[2019-08-17] MEDS: INDERAL PO SCH ×2 (08:51→20:27)
[2019-08-17] MEDS ORDERED: LASIX IV ONE (08:51)
[2019-08-17] MEDS: ELIQUIS PO SCH ×2 (08:51→20:27)
[2019-08-17] MEDS: DIOVAN PO SCH (08:53)
[2019-08-17] MEDS ORDERED: NORCO-7.5 PO ONE (08:58)
--- NOTE | 2019-08-17 09:11 | PROGRESS NOTE ---
DATE: 08/17/2019 SUBJECTIVE: The patient says she feels better and was doing fine until I started talking with her and asked her about her cough. Then she started coughing and says that she was still coughing. She has had a cough off and on for 2 years. Not all of this is with the current illness, I believe. We have tried treating her for allergies, tried treating other parts of the cough. She is on some guaifenesin. I am going to stop that for right now. She is on Tessalon Perles for her cough. OBJECTIVE: Vital Signs: Show blood pressure 140/92, respirations 20, pulse of 70, temperature 97.9 degrees Fahrenheit. HEENT: She is normocephalic. EOMs intact. PERRLA. Throat clear. Lungs: Sound clear to auscultation and percussion without rhonchi, rales, or wheezes. Chest x- ray shows clearing of her right lower lobe pneumonia. There may be a little pleural effusion still there. I saw soft pulmonary edema the other day and it was reported that she had cardiomegaly but chest x-ray today does not show cardiomegaly. ProBNP was 79. We will hold the echocardiogram. I believe that chest x-ray was just a malrotation. Abdomen: Soft. Active bowel sounds. No organomegaly or tenderness. Neurological: Examination intact grossly. Potassium is down to 2.9. I am going to increase her potassium supplementation to 40 mEq p.o. t.i.d. I will give her 60 of Lasix IV and get another chest x-ray in the morning. ASSESSMENT: 1. Right lower lobe pneumonia, resolving. 2. Hypokalemia. 3. Metastatic breast cancer. 4. Paranoid schizophrenia. PLAN: Continue support. See above. cc: Seth Snowden Jr, MD
[2019-08-17] MEDS: VANCOMYCIN 1,300 MG in NS 250 ML IV SCH (11:25)
--- NOTE | 2019-08-17 18:20 | Diag Imaging Result Doc PS360 ---
CHEST-2 VIEWS - 08/17/2019 INDICATION: pneumonia/pulm edema COMPARISON: 08/16/2019 FINDINGS: Stable right chest port in good position. Stable mild cardiomegaly. Stable hazy bibasilar infiltrates right greater than left. Stable trace bilateral pleural effusions. IMPRESSION: No change from prior. Electronically signed by Denilson Bliss 08/17/2019 6:17 PM
[2019-08-17] MEDS: TYLENOL PO PRN (20:25)
[2019-08-17] MEDS: SINGULAIR PO SCH (20:26)
[2019-08-17] MEDS: CRESTOR PO SCH (20:26)
[2019-08-17] MEDS: ZITHROMAX 500 MG/NS 500 MG/250 ML IVPB IV SCH (21:00)
[2019-08-18] MEDS: TAZIDIME 2 GM/NS 2 GM/100 ML IVPB IV SCH ×3 (04:17→23:51)
[2019-08-18 05:34] LABS: AGAP 9; BUN 7 mg/dL (8-22); CALCIUM 9.4 mg/dL (8.8-10.2); CHLORIDE 104 mmol/L (98-107); COSMO 274; CREATININE 0.6 mg/dL (0.5-0.9); ESTIMATED GFR > 60; GLUCOSE 97 mg/dL (70-104); POTASSIUM 3.7 mmol/L (3.5-5.1); SODIUM 138 mmol/L (136-145); TCO2 25 mmol/L (25-35)
[2019-08-18] MEDS: PRILOSEC PO SCH (06:32)
[2019-08-18] MEDS: TESSALON PO SCH ×3 (08:31→20:46)
[2019-08-18] MEDS: CARDIZEM CD PO SCH ×2 (08:31→20:47)
[2019-08-18] MEDS: ELIQUIS PO SCH ×2 (08:31→20:47)
[2019-08-18] MEDS: KLOR-CON PO SCH ×3 (08:32→18:24)
[2019-08-18] MEDS: ZINC SULFATE PO SCH ×2 (08:32→20:48)
[2019-08-18] MEDS: INDERAL PO SCH ×2 (08:32→20:44)
[2019-08-18] MEDS: ZYRTEC PO SCH (08:32)
[2019-08-18] MEDS: COGENTIN PO SCH ×2 (08:32→20:47)
[2019-08-18] MEDS: TRILAFON PO SCH ×2 (08:40→20:46)
[2019-08-18] MEDS: DIOVAN PO SCH (08:40)
[2019-08-18] MEDS: FEMARA PO SCH (08:41)
[2019-08-18] MEDS ORDERED: FOSAMAX PO SCH (09:00)
--- NOTE | 2019-08-18 09:17 | PROGRESS NOTE ---
DATE: 08/18/2019 SUBJECTIVE: The patient says she does not feel good. She has vomited some this morning. She has still been coughing some, though she did not cough as much yesterday when I gave her a little hydrocodone. I did increase her potassium supplementation, and her potassium is up to 3.7. Chest x-ray still shows mild infiltrates in the right base, and a little bit on the left. Trace bilateral pleural effusions. I did give her some Lasix. OBJECTIVE: Vital Signs: Blood pressure 122/82, respirations 17, pulse 66, temperature 98.5 degrees Fahrenheit. HEENT: She is normocephalic. PERRLA. Throat clear. Lungs: Sound clear to auscultation. Heart: Regular rate and rhythm without murmurs, gallops, friction rubs. Abdomen: Soft. Active bowel sounds. No organomegaly or tenderness. Neurological: Intact grossly. ASSESSMENT: Bilateral lower lobe pneumonia, worse on the right than the left, but both getting better. PLAN: Will continue IV antibiotics. The patient also has metastatic breast cancer. cc: Seth Snowden Jr, MD
[2019-08-18] MEDS: VANCOMYCIN 1,300 MG in NS 250 ML IV SCH ×3 (11:59→22:40)
--- NOTE | 2019-08-18 13:15 | HEMO/ONC PROGRESS NOTE ---
DATE: 08/18/2019 SUBJECTIVE: Ms. Persaud refers to be feeling very well today. She states she has her chronic normal cough still, but overall she feels better and is breathing better. She thinks she will be able to go home today. She knows about her follow-up appointment with us this week. OBJECTIVE: Vital Signs: Temperature 98.9 degrees, pulse rate 65, respiratory rate 18, blood pressure 149/89, O2 saturation 96% on room air. She is in 0/10 pain. PHYSICAL EXAMINATION: General: Patient is in no acute distress. She is not paranoid. Cardiovascular: Regular heart rate and rhythm. Respiratory: Lung sounds are clear to auscultation. Abdomen: Soft, nontender, nondistended. Neurological: Alert and oriented. Extremities: No lower extremity edema noted. LABORATORY DATA: Sodium 138, potassium 3.7 creatinine 0.6. ASSESSMENT AND PLAN: 1. 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 If the patient is discharged soon, we plan to see her on to discuss her treatment options and further plans. We will continue to monitor peripherally. 2. Right lower lobe and middle lobe pneumonia. The patient does appear to be getting better symptomatically. Chest x-ray continues to show the pneumonia, worse on the right than the left. The patient continuing to receive IV antibiotics is continue medical management. 3. Paranoid schizophrenia. Aware. 4. Deep venous thrombosis prophylaxis. The patient remains on Eliquis. She is also getting out of bed ad mercedes. Dictated by ELIZA Avendaño for Omar Irwin MD cc: MD Seth Carson Jr, MD MTDD
[2019-08-18] MEDS: SINGULAIR PO SCH (20:47)
[2019-08-18] MEDS: CRESTOR PO SCH (20:47)
[2019-08-18] MEDS: ZITHROMAX 500 MG/NS 500 MG/250 ML IVPB IV SCH (20:48)
[2019-08-19] MEDS: TAZIDIME 2 GM/NS 2 GM/100 ML IVPB IV SCH ×3 (04:50→22:03)
[2019-08-19 05:01] LABS: HEMATOCRIT 36.3 % (37.0-47.0); HEMOGLOBIN 11.5 g/dL (12.0-16.0); MCH 27.1 PG (27-31); MCHC 31.7 g/dL (33-37); MCV 85.6 FL (81-99); RBC 4.24 XMIL (4.2-5.4); RDW 13.7 % (11.5-14.5); WBC 5.46 X1000 (4.8-10.8)
[2019-08-19 05:24] LABS: AGAP 11; BUN 6 mg/dL (8-22); CALCIUM 10.7 mg/dL (8.8-10.2); CHLORIDE 105 mmol/L (98-107); COSMO 278; CREATININE 0.6 mg/dL (0.5-0.9); ESTIMATED GFR > 60; GLUCOSE 110 mg/dL (70-104); POTASSIUM 4.3 mmol/L (3.5-5.1); SODIUM 140 mmol/L (136-145); TCO2 24 mmol/L (25-35)
[2019-08-19] MEDS: PRILOSEC PO SCH (06:05)
--- NOTE | 2019-08-19 06:27 | Diag Imaging Result Doc PS360 ---
CHEST-PORTABLE - 08/19/2019 INDICATION: pneumonia COMPARISON: 08/17/2019 FINDINGS: Stable right chest port in good position. There is worsening infiltrate throughout the right lung diffusely. Stable trace right pleural effusion. The left lung remains clear. No left-sided effusion. Heart size remains normal. IMPRESSION: Significant worsening, ill-defined infiltrate throughout the right lung. Electronically signed by Denilson Bliss 08/19/2019 6:24 AM
[2019-08-19] MEDS: ZINC SULFATE PO SCH ×2 (08:33→22:01)
[2019-08-19] MEDS: ELIQUIS PO SCH ×2 (08:33→22:01)
[2019-08-19] MEDS: INDERAL PO SCH ×2 (08:33→22:02)
[2019-08-19] MEDS: ZYRTEC PO SCH (08:33)
[2019-08-19] MEDS: KLOR-CON PO SCH ×3 (08:33→16:46)
[2019-08-19] MEDS: COGENTIN PO SCH ×2 (08:33→22:01)
[2019-08-19] MEDS: TESSALON PO SCH ×3 (08:33→21:59)
[2019-08-19] MEDS: CARDIZEM CD PO SCH ×2 (08:34→22:02)
[2019-08-19] MEDS: FEMARA PO SCH (08:34)
[2019-08-19] MEDS: TRILAFON PO SCH ×2 (08:34→22:00)
[2019-08-19] MEDS: DIOVAN PO SCH (08:34)
--- NOTE | 2019-08-19 09:21 | PROGRESS NOTE ---
DATE: 08/19/2019 SUBJECTIVE: The patient still has had a cough. OBJECTIVE: Vital signs: Temperature of 98.2 degrees Fahrenheit, pulse 55 and regular, respirations 17, blood pressure 162/92, oxygen saturation is 92% on room air and 94% on nasal cannula at 3 L. HEENT: She is normocephalic. EOMS intact. PERRLA. Throat clear. Lungs: Sound clear to auscultation and percussion without rhonchi, rales, or wheezes. Chest x-ray, however, shows worsening of the infiltrates in the right base and right middle lobe. Heart: Regular rate and rhythm without murmurs, gallops, or friction rubs. Abdomen: Soft. Active bowel sounds. No organomegaly or tenderness. Neurological: Intact grossly. ASSESSMENT: 1. Worsening pneumonia on chest x-ray that clinically may be a little bit better. 2. Metastatic breast cancer. Could not really tell on CT scan if there were any metastasis to the lungs, but this could be very early. She does have multiple metastasis to the liver and to the spine. The patient also has paranoid schizophrenia. PLAN: Will consult Pulmonology. cc: Seth Snowden Jr, MD
[2019-08-19] MEDS: VANCOMYCIN 1,300 MG in NS 250 ML IV SCH (17:19)
[2019-08-19] MEDS ORDERED: LASIX IV ONE (20:34)
[2019-08-19] MEDS: TYLENOL PO PRN (21:59)
[2019-08-19] MEDS: SINGULAIR PO SCH (22:00)
[2019-08-19] MEDS: CRESTOR PO SCH (22:01)
[2019-08-19] MEDS: ZITHROMAX 500 MG/NS 500 MG/250 ML IVPB IV SCH (23:24)
--- NOTE | 2019-08-20 00:53 | PULMONOLOGY CONSULTATION ---
DATE: 08/19/2019 REQUESTING PHYSICIAN: Dr. Snowden. REASON FOR CONSULTATION: Worsening pneumonia with metastatic breast cancer. PRESENT ILLNESS: Ms. Silva is a 73-year-old black female with metastatic breast cancer, who is followed by Dr. Irwin. The patient also has history of paranoid schizophrenia. The patient presented to the emergency room on the 08/11 with chest pain and nonproductive cough. She denies significant sputum production. She denies fevers or chills. She denies recent change in medicines. She denies history of asthma or allergies. PAST MEDICAL HISTORY: 1. Metastatic breast cancer as per above. 2. Allergic rhinitis. 3. Hypertension. 4. Paranoid schizophrenia. PAST SURGICAL HISTORY: 1. Status post right breast surgery. 2. Status post partial hysterectomy. FAMILY HISTORY: Notable for lung cancer. SOCIAL HISTORY: The patient has never used alcohol or tobacco. REVIEW OF SYSTEMS: Notable for cough, back pain, shortness of breath. PHYSICAL EXAMINATION: General: Reveals a well-developed, well-nourished female resting comfortably and in no distress. Vital signs: BP 136/81, heart rate 63, respiratory rate 18, O2 saturation 96%. HEENT: Pupils are equal and reactive. Oropharynx appears clear. Neck: Supple. Chest: Reveals decreased breath sounds both bases. Cardiac: S1, S2. Abdomen: Soft and obese. Extremities: Reveal 1 plus peripheral edema. LABORATORIES: White blood count 5.46, hemoglobin 11.5, platelet 214,000. Chest x-ray a reveals effusion on the right with increased infiltrate on the right. CT scan of the thorax on admission reveals minor nonspecific scarring in the lingula and right upper lobe, with metastatic breast cancer in the liver and bones and bilateral effusions. IMPRESSION: A 73-year-old with 1. Increased infiltrate in the right lung with relatively benign appearing CT scan earlier this admission. 2. Bilateral effusions. 3. Cough. 4. History of allergic rhinitis. DISCUSSION: A 73-year-old with problems outlined above. It is not clear why she has had some radiographic worsening. Clinical exam is relatively clear. She also has a cough which is her primary concern. It is not clear if this is related to an underlying asthma/allergy issue or may be related to a component of diastolic dysfunction. RECOMMENDATIONS: 1. Single dose of Lasix this evening. 2. Obtain pre and post PFTs tomorrow. 3. Additional recommendations pending hospital course. cc: MD Seth Santos Jr, MD
[2019-08-20] MEDS: TYLENOL PO PRN (03:59)
[2019-08-20] MEDS: TAZIDIME 2 GM/NS 2 GM/100 ML IVPB IV SCH ×3 (04:08→20:40)
[2019-08-20 05:53] LABS: AGAP 13; BUN 9 mg/dL (8-22); CALCIUM 9.6 mg/dL (8.8-10.2); CHLORIDE 104 mmol/L (98-107); COSMO 283; CREATININE 0.6 mg/dL (0.5-0.9); ESTIMATED GFR > 60; GLUCOSE 111 mg/dL (70-104); POTASSIUM 3.7 mmol/L (3.5-5.1); SODIUM 142 mmol/L (136-145); TCO2 25 mmol/L (25-35)
[2019-08-20] MEDS: PRILOSEC PO SCH (07:01)
--- NOTE | 2019-08-20 07:35 | Diag Imaging Result Doc PS360 ---
EXAM: CHEST-2 VIEWS 08/20/2019 HISTORY: abnormal exam TECHNIQUE: PA and lateral chest COMMENT: There is a Port-A-Cath with its tip just above the right atrium. There are surgical clips in the right axilla. There is blunting of both costophrenic angles. This is worse than on the previous study of 08/19/2019. The lungs appear slightly clearer particularly the right lung. There is some atelectasis in the right base. IMPRESSION: Worsened pleural effusions. Electronically signed by Bobby Garcia 08/20/2019 7:32 AM
--- NOTE | 2019-08-20 09:39 | PROGRESS NOTE ---
DATE: 08/20/2019 SUBJECTIVE: The patient says she feels better, has not coughed as much. Unfortunately, chest x- ray shows even worsening today of the pleural effusions, especially on the right, with some atelectasis in the right base, Fuid at both costophrenic angles. She was given Lasix yesterday. I have given her Lasix a couple of times previously. We will go ahead and get an echocardiogram, even though her proBNP was normal. She may have diastolic heart failure. OBJECTIVE: Vitals: Blood pressure is 136/86, respirations 16, pulse 63, temperature 98.5 degrees Fahrenheit. HEENT: She is normocephalic. PERRLA. Throat clear. Lungs: The lungs sound clear to auscultation. Heart: Regular rate and rhythm without murmurs, gallops, or friction rubs. Abdomen: Soft. Active bowel sounds. No organomegaly or tenderness. Neurological: Intact grossly. Not coughing today. ASSESSMENT: Right lower lobe pneumonia, which has shown some improvement but pleural effusions now on the right and left, worse on right. Appreciate help from Pulmonology with Dr. Estrada. He has ordered some pulmonary function tests. I will order an echocardiogram. PLAN: We will go ahead and give her more Lasix. I guess there is a potential that if she has pleural effusions, could this be malignant pleural effusions and does she need a thoracentesis. cc: Seth Snowden Jr, MD MTDTiffany
[2019-08-20] MEDS: LASIX IV SCH ×2 (09:41→20:40)
[2019-08-20] MEDS: INDERAL PO SCH ×2 (09:43→20:41)
[2019-08-20] MEDS: DIOVAN PO SCH (09:43)
[2019-08-20] MEDS: ZYRTEC PO SCH (09:43)
[2019-08-20] MEDS: ZINC SULFATE PO SCH ×2 (09:44→20:40)
[2019-08-20] MEDS: TESSALON PO SCH ×3 (09:44→20:40)
[2019-08-20] MEDS: KLOR-CON PO SCH ×3 (09:44→18:00)
[2019-08-20] MEDS: COGENTIN PO SCH ×2 (09:44→20:41)
[2019-08-20] MEDS: TRILAFON PO SCH ×2 (09:44→20:40)
[2019-08-20] MEDS: CARDIZEM CD PO SCH ×2 (09:44→20:40)
[2019-08-20] MEDS: ELIQUIS PO SCH ×2 (09:44→20:40)
[2019-08-20] MEDS: FEMARA PO SCH (09:45)
[2019-08-20] MEDS: VANCOMYCIN 1,300 MG in NS 250 ML IV SCH (11:40)
--- NOTE | 2019-08-20 15:08 | ECHO REPORT ---
ORDER DATE: 08/20/2019 INTERPRETING PHYSICIAN: Dr. Shai Jackson. ECHOCARDIOGRAPHIC MEASUREMENTS: 1. Interventricular septum: 1.1 cm. 2. Left ventricular posterior wall: 1.1 cm. 3. Diastolic diameter: 3.7 cm. 4. Left atrium: 3.6 cm. 5. Aorta: 2.5 cm. SUMMARY OF THE 2-DIMENSIONAL IMAGIN. Aortic valve leaflets were trileaflet. 2. Tricuspid valve was normal. 3. Pulmonic valve was normal. 4. Mitral valve was normal. 5. Normal left ventricular cavity size. Estimated ejection fraction of 65%. There is mild left atrial enlargement. 6. There is mild mitral regurgitation. 7. Mild tricuspid regurgitation. Peak velocity across the tricuspid valve was less than 2 m/sec. 8. Peak velocity across the aortic valve less than 2 m/sec. There is no aortic stenosis or regurgitation. 9. Indeterminate diastolic dysfunction. 10. GS pattern was performed, average of -21%. This is baseline mid peak systolic strain. cc: MD Seth De Leon Jr, MD
[2019-08-20] MEDS: SINGULAIR PO SCH (20:40)
[2019-08-20] MEDS: ZITHROMAX 500 MG/NS 500 MG/250 ML IVPB IV SCH (20:47)
[2019-08-20] MEDS: CRESTOR PO SCH (20:47)
--- NOTE | 2019-08-21 00:27 | PULMONOLOGY PROGRESS NOTE ---
DATE: 08/20/2019 SUBJECTIVE: The patient is awake and alert. She reports her cough has significantly diminished. She has had excellent diuresis with Lasix. OBJECTIVE: Vital Signs: The patient has been afebrile for the last 24 hours. Blood pressure 139/79, heart rate 67, respiratory rate 22, O2 saturation 95% on 3 L per nasal cannula. HEENT: Pupils are equal and reactive. Oropharynx appears clear. Neck: Supple. Chest: Reveals decreased breath sounds in both lung bases. Cardiac: S1, S2. Abdomen: Soft. LABORATORIES: Chest x-ray reveals some clearing of the infiltrates in the right lung but with small bilateral effusions. SPIROMETRY: The patient was unable to perform pulmonary function studies. IMPRESSION: A 73-year-old with 1. Bilateral pleural effusions. 2. Resolving right basilar filtrate. 3. Cough with improvement following diuresis. DISCUSSION: A 73-year-old with problems outlined above. Pulmonary functions could not be performed, but she did significantly improve with near resolution of her cough with diuresis. That suggests a component of her process is likely heart failure with preserved ejection fraction. PLAN: 1. Continue Lasix as tolerated. 2. The patient was offered a Nguyen catheter to allow her to sleep at night. 3. Follow up chest x-ray tomorrow. cc: MD Seth Santos Jr, MD
[2019-08-21 04:00] LABS: BASO# 0.07 X1000 (0.0-0.2); BASO% 1.4 % (0.0-0.8); EOS# 0.17 X1000 (0.0-0.7); EOS% 3.4 % (0.0-10.0); HEMATOCRIT 36.6 % (37.0-47.0); HEMOGLOBIN 11.9 g/dL (12.0-16.0); LYMPH# 1.07 X1000 (1.2-3.4); LYMPH% 21.1 % (20.5-51.1); MCH 27.9 PG (27-31); MCHC 32.5 g/dL (33-37); MCV 85.7 FL (81-99); MONO# 0.74 X1000 (0.11-0.59); MONO% 14.6 % (1.7-9.3); MPV 9.8 FL (7.4-10.4); NEUT# 3.02 X1000 (1.4-6.5); NEUT% 59.5 % (42.2-75.2); PLT 220 X1000 (130-400); RBC 4.27 XMIL (4.2-5.4); RDW 13.7 % (11.5-14.5); WBC 5.07 X1000 (4.8-10.8)
[2019-08-21 04:59] LABS: AGAP 13; BUN 12 mg/dL (8-22); CALCIUM 9.9 mg/dL (8.8-10.2); CHLORIDE 103 mmol/L (98-107); COSMO 283; CREATININE 0.8 mg/dL (0.5-0.9); GLUCOSE 105 mg/dL (70-104); POTASSIUM 3.9 mmol/L (3.5-5.1); SODIUM 142 mmol/L (136-145); TCO2 26 mmol/L (25-35)
[2019-08-21] MEDS: PRILOSEC PO SCH ×2 (05:49→06:42)
[2019-08-21] MEDS: VANCOMYCIN 1 GM/NS 1 GM/250 ML IVPB IV SCH ×2 (05:49→18:56)
[2019-08-21] MEDS: TAZIDIME 2 GM/NS 2 GM/100 ML IVPB IV SCH ×2 (05:49→13:33)
--- NOTE | 2019-08-21 07:35 | Diag Imaging Result Doc PS360 ---
EXAM: CHEST-2 VIEWS 08/21/2019 HISTORY: abnormal exam TECHNIQUE: PA and lateral chest COMMENT: There is blunting of both costophrenic angles particularly the right. There has been some improvement with respect to the right side since 08/20/2019. Otherwise are has been no significant change. IMPRESSION: Pleural effusions. Right middle lobe atelectasis versus pneumonia. Electronically signed by Bobby Garcia 08/21/2019 7:33 AM
--- NOTE | 2019-08-21 08:47 | PROGRESS NOTE ---
DATE: 08/21/2019 SUBJECTIVE: The patient says she is feeling a little bit better. Her cough is better. OBJECTIVE: Vital signs: Show blood pressure 118/80, respirations 16, pulse 70, temperature 98.3 degrees Fahrenheit, oxygen saturation on room air is 96%. HEENT: She is normocephalic. EOMS intact. PERRLA. Throat clear. Lungs: Sound clear to auscultation and percussion without rhonchi, rales or wheezes. Heart: Regular rate and rhythm without murmurs, gallops, friction rubs. Abdomen: Soft. Active bowel sounds. No organomegaly or tenderness. Neurological exam: Intact grossly. IMAGING STUDIES: Chest x-ray still shows some pleural effusion on the right, but it is small. It has improved since giving her more Lasix. Echocardiogram shows some indeterminate diastolic dysfunction. Otherwise, heart function is preserved. This is probably diastolic congestive heart failure and the pneumonia seems to be cleared. LABORATORY: White count 5070, hemoglobin 11.9. Electrolytes essentially normal. ASSESSMENT: 1. Right lower lobe pneumonia, resolved. 2. Diastolic congestive heart failure. 3. Metastatic breast cancer. 4. Paranoid schizophrenia. PLAN: We will get another chest x-ray tonight, possibly home in the morning with Lasix. We will continue IV antibiotics today, and probably will not need any when she goes home. She has been on vancomycin and Fortaz and Zithromax. Appreciate the help from Dr. Estrada. cc: Seth Snowden Jr, MD
[2019-08-21] MEDS: LASIX IV SCH ×2 (09:14→17:33)
[2019-08-21] MEDS: CARDIZEM CD PO SCH (09:16)
[2019-08-21] MEDS: ZINC SULFATE PO SCH (09:16)
[2019-08-21] MEDS: COGENTIN PO SCH (09:16)
[2019-08-21] MEDS: TESSALON PO SCH ×2 (09:17→15:29)
[2019-08-21] MEDS: INDERAL PO SCH (09:17)
[2019-08-21] MEDS: KLOR-CON PO SCH ×3 (09:17→17:32)
[2019-08-21] MEDS: ELIQUIS PO SCH (09:17)
[2019-08-21] MEDS: TRILAFON PO SCH (09:18)
[2019-08-21] MEDS: ZYRTEC PO SCH (09:18)
[2019-08-21] MEDS: FEMARA PO SCH (09:18)
[2019-08-21] MEDS: DIOVAN PO SCH (09:18)
--- NOTE | 2019-08-21 19:59 | Diag Imaging Result Doc PS360 ---
CHEST-2 VIEWS - 08/21/2019 6:46 PM INDICATION: CHF COMPARISON: 7:28 AM FINDINGS: There are grossly stable hazy bilateral mid lung and basilar infiltrates. Stable trace pleural effusions. Stable mild cardiomegaly. IMPRESSION: No change from prior. Electronically signed by Denilson Bliss 08/21/2019 7:57 PM
--- NOTE | 2019-08-21 22:56 | PULMONOLOGY PROGRESS NOTE ---
DATE: 08/21/2019 SUBJECTIVE: The patient is awake, alert, and conversant. She reports her shortness of breath and cough have resolved. She is without specific complaints. OBJECTIVE: Vital Signs: The patient has been afebrile for the last 24 hours. Blood pressure 111/68, heart rate 68, respiratory rate 16, oxygen saturation 97% on room air. HEENT: Pupils are equal and reactive. Oropharynx appears clear. Neck: Supple. Chest: Reveals faint crackles in the lung bases. Cardiac Exam: S1-S2. Abdomen: Soft. Extremities: Without edema. LABORATORIES: Chest x-ray at 19:00 today reveals increased AP diameter, small effusion, slight increased markings right base but overall significantly improved. IMPRESSION: A 73-year-old with 1. Bilateral effusions. 2. Resolving right basilar infiltrate. 3. Cough with resolution. PLAN: 1. Continue current treatment regimen. 2. Anticipate discharge soon as outlined by Dr. Seth Snowden. cc: MD Seth Santos Jr, MD
[2019-08-22 06:16] LABS: BASO# 0.05 X1000 (0.0-0.2); BASO% 0.9 % (0.0-0.8); EOS# 0.17 X1000 (0.0-0.7); HEMATOCRIT 38.5 % (37.0-47.0); HEMOGLOBIN 12.1 g/dL (12.0-16.0); LYMPH# 1.15 X1000 (1.2-3.4); LYMPH% 20.3 % (20.5-51.1); MCH 27.1 PG (27-31); MCHC 31.4 g/dL (33-37); MCV 86.3 FL (81-99); MONO# 0.78 X1000 (0.11-0.59); MONO% 13.8 % (1.7-9.3); MPV 10.4 FL (7.4-10.4); NEUT# 3.51 X1000 (1.4-6.5); PLT 253 X1000 (130-400); RBC 4.46 XMIL (4.2-5.4); RDW 13.8 % (11.5-14.5); WBC 5.66 X1000 (4.8-10.8)
[2019-08-22 06:31] LABS: AGAP 10; BUN 17 mg/dL (8-22); CALCIUM 9.9 mg/dL (8.8-10.2); CHLORIDE 100 mmol/L (98-107); COSMO 274; CREATININE 0.7 mg/dL (0.5-0.9); ESTIMATED GFR > 60; GLUCOSE 101 mg/dL (70-104); SODIUM 136 mmol/L (136-145); TCO2 26 mmol/L (25-35)
[2019-08-22] MEDS: CARDIZEM CD PO SCH ×2 (07:38→09:01)
[2019-08-22] MEDS: VANCOMYCIN 1 GM/NS 1 GM/250 ML IVPB IV SCH (07:38)
[2019-08-22] MEDS: LASIX IV SCH (07:39)
[2019-08-22] MEDS: ZITHROMAX 500 MG/NS 500 MG/250 ML IVPB IV SCH (07:39)
[2019-08-22] MEDS: ELIQUIS PO SCH ×2 (07:39→09:01)
[2019-08-22] MEDS: PRILOSEC PO SCH (07:39)
[2019-08-22] MEDS: TAZIDIME 2 GM/NS 2 GM/100 ML IVPB IV SCH (07:40)
[2019-08-22] MEDS: ZINC SULFATE PO SCH ×2 (07:40→09:01)
[2019-08-22] MEDS: TESSALON PO SCH ×2 (07:40→09:01)
[2019-08-22] MEDS: TRILAFON PO SCH ×2 (07:40→09:02)
[2019-08-22] MEDS: CRESTOR PO SCH (07:41)
[2019-08-22] MEDS: COGENTIN PO SCH ×2 (07:41→09:02)
[2019-08-22] MEDS: INDERAL PO SCH ×2 (07:41→09:01)
[2019-08-22] MEDS: SINGULAIR PO SCH (07:41)
[2019-08-22 08:13] VITALS: BP 115/48
[2019-08-22] MEDS: FEMARA PO SCH (09:01)
[2019-08-22] MEDS: DIOVAN PO SCH (09:01)
[2019-08-22] MEDS: ZYRTEC PO SCH (09:02)
[2019-08-22] MEDS: KLOR-CON PO SCH (09:02)
--- NOTE | 2019-08-22 09:18 | DISCHARGE SUMMARY ---
ADMISSION DATE: 08/12/2019 DISCHARGE DATE: 08/22/2019 FINAL DIAGNOSIS: 1. Right lower lobe pneumonia. 2. Pleural effusions. 3. Diastolic congestive heart failure. 4. Metastatic lung cancer to the spine, pelvis, and liver. 5. Paranoid schizophrenia. 6. Gastroesophageal reflux disease. 7. Postmenopausal state. 8. Hypercholesterolemia. HISTORY OF PRESENT ILLNESS/HOSPITAL COURSE: The patient came in with a 4- to 5-day history of cough. She seemed to have a right lower lobe pneumonia. She was eventually treated without antibiotics including Zithromax, vancomycin, and Fortaz. Initially, she was on Rocephin and Zithromax, did not seem to be getting better with that. I broadened her medications, and she has done much better. During her course though, her liver enzymes were elevated, so I did a CT scan of her abdomen, which showed liver metastasis from her breast cancer. Oncology was consulted and will be following and will see her after hospitalization. Then, her chest x-ray got worse after she clinically improved with her pneumonia and she had pleural effusions. We ended up doing an echocardiogram, and it appears that she has diastolic dysfunction with diastolic congestive heart failure. Consultation was made with Pulmonology, Dr. Estrada, who felt like her lungs were getting better, but this was some diastolic congestive heart failure. She was given Lasix and this has improved. She has very small pleural effusions bilaterally now. We will add Lasix to her home medications of 40 mg each morning. Today she feels much better, is not having any cough. OBJECTIVE: Vital Signs: Blood pressure 115/48, respirations 14, pulse 82, temperature 98.3 degrees Fahrenheit. HEENT: She is normocephalic. EOMS intact. PERRLA. Throat clear. Lungs: Clear to auscultation and percussion without rhonchi, rales, or wheezes. Heart: Regular rate and rhythm without murmurs, gallops, friction rubs. Abdomen: Soft, active bowel sounds. No organomegaly or tenderness. Neurological: Exam is intact grossly. LABORATORY DATA: All stable today. PLAN: We will discharge today. I do not think she needs any more antibiotics. The Zithromax will continue in her system for several more days. I will see her back in the office within the next week or so with a chest x-ray and a chemistry profile and CBC. cc: Seth Snowden Jr, MD
--- NOTE | 2019-08-22 11:14 | HEMO/ONC PROGRESS NOTE ---
DATE: 08/22/2019 SUBJECTIVE: Ms. Silva is in her bed this morning. She was getting up to move herself to her chair when I arrived. The patient is feeling well. She states she wants to go home today. She denies any cough or upper respiratory symptoms. She states she feels well. No acute events occurred overnight. OBJECTIVE: Vital Signs: Temperature 98.3 degrees, pulse rate 82, respiratory rate 14, blood pressure 115/48, O2 saturation 97% on room air. She is in 0/10 pain. PHYSICAL EXAMINATION: General: The patient is in no acute distress. Cardiovascular: Regular rate and rhythm. Respiratory: Lung sounds are clear to auscultation. Normal respiratory effort Gastrointestinal: Abdomen is soft, nontender, nondistended. Extremities: No edema noted. Neurological: Alert and oriented. LABORATORY: WBCs 5.66, hemoglobin 12.1, hematocrit 38.5, platelet count 253. ASSESSMENT AND PLAN: 1. 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 The patient will be discharged today. We will see her next week to discuss any further plans with her. 2. Right lower lobe middle pneumonia, resolved. The patient does not need any further antibiotics per her primary medical doctor. Her cough has resolved. 3. Paranoid schizophrenia. Patient is managed by her primary medical doctor. Dictated by ELIZA Avendaño for Omar Irwin MD cc: MD Seth Carson Jr, MD
== END 2019-08-22 12:54 | disposition home or self-care (01) | DRG 193 ==
LOC: ED 07:42 → EDIPHOLD 10:48 → 1N 14:08
PROVIDERS: ADMIT Emergency Medicine; ATTEND Emergency Medicine